=== PATIENT | male | born 1955 | race Caucasian/White ===

== ENCOUNTER 2016-10-05 09:16 | Outpatient (CLI) | payer OTHER | END 2016-10-05 09:17 | disposition home or self-care (01) | DX: I10 Essential (primary) hypertension (principal); E78.5 Hyperlipidemia, unspecified; R73.01 Impaired fasting glucose; D64.9 Anemia, unspecified ==

== ENCOUNTER 2017-01-25 22:57 | Emergency (ER) | payer OTHER ==
[2017-01-25 23:03] VITALS: BP 124/73
--- NOTE | 2017-01-25 23:11 | ED Physician Documentation ---
History of Present Illness - Stated complaint Stated Complaint: R KNEE PX - Chief complaint Chief Complaint: Ext Problem - History obtained from History obtained from: Patient - History of Present Illness Timing: How many days ago (6) Pain level now: 6 Improved by: rest Worsened by: movement, weight-bearing - Additonal information Additional information: c/o 6 days of gradual onset right knee pain and swelling, onset after gardening earlier in the day although this was not an unusual amount of activity for him. Denies h/o these symptoms. The pain and swelling have progressed to involve RLE distal to the knee as well. Taking ibuprofen which is no longer controlling the discomfort. Review of Systems Constitutional: denies: Fever Cardiac: denies: Chest pain / pressure Respiratory: denies: Dyspnea Musculoskeletal: reports: Extremity pain, Joint pain, Extremity swelling, Joint swelling, Pain with weight bearing Neurologic: denies: Focal weakness, Numbness PD PAST MEDICAL HISTORY - Past Medical History Cardiovascular: Hypertension Respiratory: None Neuro: Head injury Endocrine/Autoimmune: None GI: None : Benign prostate hypertrophy HEENT: None Psych: None Musculoskeletal: None Derm: None - Past Surgical History General: Colonoscopy Ortho: Other - Present Medications Home Medications: Ambulatory Orders Medication Instructions Recorded Confirmed Aspirin [Aspir 81] 81 mg PO DAILY 07/10/13 01/25/17 Losartan Potassium [Cozaar] 100 mg PO DAILY 07/10/13 01/25/17 Hydrochlorothiazide 1 tab ORAL DAILY 12/11/16 01/25/17 HYDROcod/ACETAM 5/325 [[place] 5/325] 1 - 2 ea PO Q6H PRN #15 tablet 01/26/17 - Allergies Allergies/Adverse Reactions: Allergies Allergy/AdvReac Type Severity Reaction Status Date / Time codeine AdvReac Unknown Rash Verified 01/25/17 23:01 lisinopril AdvReac Unknown Rash Verified 01/25/17 23:01 nifedipine AdvReac Unknown Rash Verified 01/25/17 23:01 simvastatin [From Zocor] AdvReac Unknown Rash Verified 01/25/17 23:01 sulfacetamide sodium * AdvReac Unknown Rash Verified 01/25/17 23:01 [From Sulfamide] - Social History Smoking Status: Former smoker PD ED PE NORMAL - Vitals Vital signs reviewed: Yes - General General: Alert and oriented X 3, No acute distress, Well developed/nourished - Derm Derm: Normal color, Warm and dry, No rash - Extremities Extremities: No tenderness to palpate - Neuro Neuro: No motor deficit, No sensory deficit PD ED PE EXPANDED - Extremities Extremities: Joint effusion, Pedal edema R. No: Tenderness, Limited ROM (FROM although pain is exacerbated with full flexion), Red warm joint Results - Vitals Vitals: Vital Signs - 24 hr 01/25/17 01/26/17 23:01 02:15 Temperature 36.0 C L Heart Rate 66 65 Respiratory 18 17 Rate Blood Pressure 124/73 O2 Saturation 99 99 Oxygen O2 Source Room air - Rads (name of study) RLE venous doppler US Radiology: Prelim report reviewed, See rad report PD MEDICAL DECISION MAKING - ED course Complexity details: reviewed results, re-evaluated patient, considered differential, d/w patient Departure - Departure Disposition: 01 Home, Self Care Clinical Impression: Pain of lower extremity Qualifiers: Laterality: right Qualified Code(s): M79.604 - Pain in right leg Condition: Good Instructions: ED Leg Swelling Unilateral Follow-Up: Day Stroud DO [Primary Care Provider] - (Call to arrange for next available appointment) Prescriptions: HYDROcod/ACETAM 5/325 [[place] 5/325] 1 - 2 ea PO Q6H PRN #15 tablet PRN Reason: Pain Discharge Date/Time: 01/26/17 02:17
--- NOTE | 2017-01-26 01:04 | Ultrasound Preliminary Report ---
Exam: US Duplex Ext Veins Right IMPRESSION: No evidence for deep venous thrombosis. [facility] SITE ID: [id number]
--- NOTE | 2017-01-26 01:07 | Ultrasound Report ---
EXAM: RIGHT LOWER EXTREMITY VENOUS ULTRASOUND EXAM DATE: 01/26/2017 12:42 AM. CLINICAL HISTORY: RLE pain, swelling. COMPARISON: None. TECHNIQUE: Real-time sonographic vascular imaging was performed by the pyrotechnics press tender through the lower extremity utilizing both color-flow and Doppler spectral analysis. Multiple inside account representative static jud ges were saved for review. FINDINGS: Common Femoral Vein (CFV): Normal. CFV-GSV Junction: Normal. Profunda Femoral Vein (PFV): Normal. Femoral Vein (FV) Prox: Normal. Femoral Vein (FV) Mid: Normal. Femoral Vein (FV) Dist: Normal. Popliteal Vein: Normal. Posterior Tibial Veins: Normal. Peroneal Veins: Normal. Contralateral Side CFV: Normal. Other: Right lateral knee fluid collection seen likely joint effusion. IMPRESSION: No evidence for deep venous thrombosis. [facility] Referring Provider Line: [phone] SITE ID: [id number]
[2017-01-26] MEDS ORDERED: HYDROcod/ACET 5/325 Prepack 6 PO STA (02:03)
[2017-01-26] MEDS ORDERED: HYDROcod/ACET 5/325 Prepack 6 PO ONE (02:17)
== END 2017-01-26 02:17 | disposition home or self-care (01) ==
LOC: ED 22:57
DX: M79.604 Pain in right leg (principal); I10 Essential (primary) hypertension; Z87.891 Personal history of nicotine dependence
CPT/HCPCS: 99283

== ENCOUNTER 2017-02-18 20:20 | Outpatient (CLI) | payer OTHER ==
--- NOTE | 2017-02-19 09:20 | XRAY Report ---
THREE-VIEW RIGHT KNEE: 02/18/2017 CLINICAL INDICATION: Traumatic arthropathy. FINDINGS: Frontal, lateral, sunrise views of the right knee demonstrate no evidence of fracture or d islocation. The joint spaces are preserved. No effusion is present. IMPRESSION: NORMAL RIGHT KNEE. JOB #: [id number] EXT JOB #:[id number]
== END 2017-02-18 20:21 | disposition home or self-care (01) ==
LOC: DI 20:20
PROVIDERS: ATTEND Internal Medicine
DX: M12.561 Traumatic arthropathy, right knee (principal)

== ENCOUNTER 2017-02-25 09:34 | Outpatient (CLI) | payer OTHER ==
[2017-02-25 18:07] LABS: ALBUMIN/GLOBULIN RATIO 0.8 (1.0-2.2); BILIRUBIN,TOTAL 0.4 mg/dL (0.2-1.0); CALCIUM 9.2 mg/dL (8.5-10.3); CREATININE 0.8 mg/dL (0.6-1.2); POTASSIUM 4.5 mmol/L (3.5-5.0); TOTAL PROTEIN 7.5 g/dL (6.7-8.2)
== END 2017-02-25 09:35 | disposition home or self-care (01) ==
LOC: LAB.F 09:34
PROVIDERS: ATTEND Physician Assistant Medical
DX: Z51.81 Encounter for therapeutic drug level monitoring (principal); Z79.899 Other long term (current) drug therapy
CPT/HCPCS: 36415; 80053

== ENCOUNTER 2017-03-02 14:48 | Outpatient (CLI) | payer OTHER ==
--- NOTE | 2017-03-02 22:03 | MRI Report ---
EXAM: RIGHT KNEE MRI WITHOUT CONTRAST EXAM DATE: 03/02/2017 04:42 p.m. CLINICAL HISTORY: Recent right knee injury. Right knee swelling. Difficulty extending the knee. COMPARISON: Right knee radiography from 02/18/2017. Right lower extremity duplex Doppler ultrasound f rom 01/26/2017. TECHNIQUE: Multiplanar, multisequence T1-weighted and fluid-sensitive sequences of the knee without c ontrast. Other: None. FINDINGS: Bones and articular cartilage: Mild marrow edema at the anterolateral and posterolateral aspects of t he tibial plateau. No acute fracture or bone lesions. 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 No subluxations. Medial Meniscus: The medial meniscus is intact. Lateral Meniscus: Oblique tear at the anterior horn. Cruciate Ligaments: The anterior and posterior cruciate ligaments are intact. Collateral Ligaments: The medial collateral and lateral collateral ligamentous structures are intact. Tendons: There is distal semimembranosus tendinosis. The quadriceps, patellar, and popliteus tendons are unremarkable. Musculature: Mild edema within the short head of the biceps femoris muscle and the posterior distal a spect of the vastus medialis muscle and posterior distal aspect of the vastus lateralis muscle. Mild edema within the popliteus muscle. Other: Small to moderate-sized joint effusion. Slight synovial thickening and irregularity suggestive of synovitis. There is a 3.6 x 1.7 x 2.2 cm collection of fluid within the semimembranosusgastrocne mius bursa (Ramirez's cyst). There is a larger, complex, bilobed cystic-appearing mass within the poste rior intermuscular fat/popliteal fossa. The superior component of this bilobed mass measures approxim ately 5.3 x 6.3 x 3.6 cm and is medial to the popliteal vessels at the level of the distal femur. It causes lateral displacement of the popliteal vessels. The smaller inferior component of this bilobed mass is posterior to the medial head gastrocnemius muscle at the level of the knee joint line. The ma ss is hyperintense on the T2-weighted images and hypointense on T1-weighted images. There are multipl e thin septations within the mass. No loose bodies. The medial and lateral retinacula are intact. I ncidentally, a medial synovial plica is present. There is subcutaneous edema at the knee. IMPRESSION: 1. Mild marrow edema at the anterolateral and posterolateral aspects of the lateral tibial plateau wh ich may represent a bone contusion. No acute fracture. 2. 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 3. Oblique tear at the anterior horn lateral meniscus. 4. Mild edema within the short head of the biceps femoris muscle and the posterior distal aspects of the vastus medialis and vastus lateralis muscles which may represent strain or inflammation. 5. Small to moderate-sized joint effusion. Synovial thickening and irregularity suggestive of synovit is. 6. Small Ramirez's cyst. 7. Large, complex, bilobed, cystic-appearing mass within the posterior intermuscular fat and poplitea l fossa at the posterior aspect of the knee. Differential would include a complex ganglion or hematom a. A cystic or mucinous neoplasm or an abscess is thought to be less likely, but cannot be entirely e xcluded. If the patient's symptoms persist or worsen, then a follow-up MRI without and with intraveno us contrast in 6-8 weeks is suggested to evaluate for interval change. 8. Diffuse subcutaneous edema at the knee. [facility] MUSCULOSKELETAL [facility]IOLOG[facility] SECTION Referring Provider Line: [phone] SITE ID: [id number]
== END 2017-03-02 14:49 | disposition home or self-care (01) ==
LOC: DI 14:48
PROVIDERS: ATTEND Physician Assistant Medical
DX: M94.261 Chondromalacia, right knee (principal); M25.461 Effusion, right knee; S83.281A Other tear of lateral meniscus, current injury, right knee, initial encounter; M71.21 Synovial cyst of popliteal space [Baker], right knee; R22.41 Localized swelling, mass and lump, right lower limb; R60.0 Localized edema

== ENCOUNTER 2017-04-01 07:04 | Day surgery (SDC) | payer OTHER ==
[~2017-04-01 07:04] MED LIST: ceFAZolin 2 GM/50 ML 2 GM/50 ML BAG IV ONE
[2017-04-01] MEDS ORDERED: LACTATED RINGERS 1,000 ML IV ONE ×2 (07:40→09:22)
[2017-04-01] MEDS ORDERED: BUPIVACAINE 0.25%-EPI 1:200000 PF 30 ML VIAL SUBQ ONE (08:28)
[2017-04-01] MEDS ORDERED: PROPOFOL 200 MG/20 ML VIAL IVP ONE (08:35)
[2017-04-01] MEDS ORDERED: fentaNYL 100 MCG/2 ML VIAL IVP ONE (08:35)
[2017-04-01] MEDS ORDERED: MIDAZOLAM 2 MG/2 ML VIAL IVP ONE (08:35)
[2017-04-01] MEDS ORDERED: LIDOCAINE-MPF 2% 5 ML VIAL IM ONE (08:35)
[2017-04-01] MEDS ORDERED: SUCCINYLCHOLINE 200 MG/10 ML VIAL IVP ONE (08:35)
[2017-04-01 12:55] VITALS: BP 119/65
--- NOTE | 2017-04-01 18:06 | OPERATIVE REPORT ---
Operative Report - General Procedure Date: 04/01/17 Planned Procedure: ATHROSCOPIC PARTIAL LATERAL MENISCECTOMY RIGHT KNEE Pre-Op Diagnosis: RIGHT KNEE LATERAL MENISCUS ANTERIOR HORN TEAR Procedure Performed: ATHROSCOPIC PARTIAL LATERAL MENISCECTOMY RIGHT KNEE Post Op Diagnosis: SAME - Procedure Note Primary Surgeon: KULWANT Secondary Surgeon: GERRI Anesthesia Provider: [facility] Anesthesia Technique: Spinal Estimated Blood Loss (mL): 2
--- NOTE | 2017-04-02 10:32 | OPERATIVE REPORT ---
DATE OF SURGERY: 04/01/2017 00:00:00 PREOPERATIVE DIAGNOSIS: Right knee anterior horn lateral meniscus tear. POSTOPERATIVE DIAGNOSIS: Right knee anterior horn lateral meniscus tear. PROCEDURE PERFORMED: Right knee arthroscopic partial lateral meniscectomy. SURGEON: Jose Zhang MD. AGENT CONTRACT CLERK: None. ANESTHESIA: Sal Cortes CRNA. ANESTHESIA TYPE: Spinal. ESTIMATED BLOOD LOSS: 2 mL. IMPLANTS: None. FINDINGS: In the patellofemoral joint, there was no chondromalacia. In the medial compartment, there was some waviness to the central edge of the medial meniscus, but no tear. There was no chondromalaci a. In the notch, the ACL was in its normal position, tightened with stress. In the lateral compartmen t, the posterior 2/3 of the lateral meniscus were intact with just some slight waviness to the centra l margin. The anterior horn had turned up the meniscal tissue and some small tears. It was not possib le to see getting into the cleft with a meniscal hook prior to resection. After resection, it was pos sible to prove that there was no remaining cleft in the meniscus. INDICATIONS FOR SURGERY: This man suffered several months of generally lateral and anterior right kne e pain. MRI scan showed a very clear tear in the anterior horn of the lateral meniscus. Otherwise, th e knee appeared normal on MRI. DESCRIPTION OF PROCEDURE: The patient was brought into the operating room and placed under adequate g eneral anesthesia. The right knee was then infiltrated with 60 mL of 0.25% Marcaine with epinephrine. The right lower extremity was prepped and sterilely draped in the usual fashion. No tourniquet was a pplied. A timeout was held to identify the patient, site, and procedure. The knee was entered with the usual inferolateral inferomedial portal for scope and instrumentation r espectively. A large bore needle was placed in the superior patellar pouch for infiltration for pdamini l saline irrigation. Thorough exam of the knee was done and it is reported above. Attention was directed to the lateral compartment. First, some small biters were introduced but did n ot very well resect the material. Following this, the cautery resector was introduced, and the modera te synovitis surrounding the area of tear was removed. Following this, the damaged portion of the lat eral meniscus was resected back to a stable remnant. The knee was irrigated until clear with about 500 mL of normal saline. The portals were closed with i nterrupted 4-0 nylon [id number] sutures. Sterile bandage was applied. The patient was then taken to the recovery room in good condition having tolerated the procedure well, with her spinal still in effect. JOB #: [id number] [id number] JOB #:[id number]
== END 2017-04-01 07:05 | disposition home or self-care (01) ==
LOC: SDS 07:04
PROVIDERS: ATTEND Orthopaedic Surgery
PROC: 0SBC4ZZ Excision of Right Knee Joint, Percutaneous Endoscopic Approach (ICD-10-PCS; principal; 2017-04-01 08:00)
DX: S83.281A Other tear of lateral meniscus, current injury, right knee, initial encounter (principal)
CPT/HCPCS: 29881; J0690; J7120

== ENCOUNTER 2017-08-30 10:03 | Outpatient (CLI) | payer OTHER ==
--- NOTE | 2017-08-30 12:04 | MRI Report ---
EXAM: RIGHT KNEE MRI WITHOUT CONTRAST EXAM DATE: 08/30/2017 10:52 AM. CLINICAL HISTORY: Worsening lateral right knee pain. Previous knee surgery in March 2017. Recent f all 3 weeks ago. COMPARISON: Right knee MRI from 03/02/2017. TECHNIQUE: Multiplanar, multisequence T1-weighted and fluid-sensitive sequences of the knee without c ontrast. Other: None. FINDINGS: Bones and Articular Cartilage: There is a 4 x 2 mm full-thickness articular cartilage fissure at the lateral tibial plateau which is new since the previous study. Subchondral marrow edema at the central aspect of the lateral tibial plateau which is also new since the previous study. Small partial-thick ness articular cartilage fissure at the lateral patellar facet which is unchanged. No subluxation. No acute fracture or bone lesions. Medial Meniscus: Minimal blunting at the free edge of the medial meniscal body which is unchanged. No discrete tear. Lateral Meniscus: There is blunting at the free edge and inner third of the lateral meniscus which ma y be due to degeneration and/or previous partial meniscectomy. No definite recurrent tear. Cruciate Ligaments: The anterior and posterior cruciate ligaments are intact. Collateral Ligaments: The medial collateral and lateral collateral ligamentous structures are intact. Tendons: The quadriceps, patellar, semimembranosus, and popliteus tendons are unremarkable. Musculature: No edema or fatty atrophy. Other: Very small joint effusion. Small popliteal cyst. No loose bodies. The medial and lateral reti nacula are intact. The subcutaneous tissues and fat pads are unremarkable. IMPRESSION: 1. New full-thickness articular cartilage fissure and subchondral marrow edema at the central aspect of the lateral tibial plateau. 2. Persistent small partial-thickness articular cartilage fissure at the lateral patellar facet. 3. Minimal blunting at the free edge of the medial meniscal body which is unchanged, and may represen t degenerative fraying. No discrete tear. 4. Blunting at the free edge and inner third of the lateral meniscus which may be due to degeneration and/or previous partial meniscectomy. No definite recurrent tear. 5. Very small joint effusion and small popliteal cyst. [facility]CULOSKELET[facility] SECTION Referring Provider Line: [phone] SITE ID: [id number]
== END 2017-08-30 10:04 | disposition home or self-care (01) ==
LOC: DI 10:03
PROVIDERS: ATTEND Orthopaedic Surgery
DX: M23.91 Unspecified internal derangement of right knee (principal); M25.461 Effusion, right knee; M71.21 Synovial cyst of popliteal space [Baker], right knee

== ENCOUNTER 2017-09-11 09:05 | Outpatient (CLI) | payer OTHER ==
[2017-09-11 17:37] LABS: BASOPHILS % (AUTO) 0.7 %; EOSINOPHILS # (AUTO) 0.1 10^3/uL (0.0-0.7); EOSINOPHILS % (AUTO) 2.1 %; HGB - HEMOGLOBIN 13.7 g/dL (14.0-18.0); LYMPHOCYTES # (AUTO) 1.1 10^3/uL (1.5-3.5); LYMPHOCYTES % (AUTO) 24.6 %; MEAN CORPUSCULAR HEMOGLOBIN 29.9 pg (27.0-31.0); MEAN CORPUSCULAR HGB CONC 32.6 g/dL (32.0-36.0); MEAN CORPUSCULAR VOLUME 91.7 fL (80.0-94.0); MEAN PLATELET VOLUME 8.6 fL (7.4-11.4); MONOCYTES # (AUTO) 0.4 10^3/uL (0.0-1.0); MONOCYTES % (AUTO) 9.7 %; NEUTROPHILS # (AUTO) 2.7 10^3/uL (1.5-6.6); NEUTROPHILS % (AUTO) 62.9 %; PLT - PLATELET COUNT 221 10^3/uL (130-450); RED CELL DISTRIBUTION WIDTH 14.6 % (12.0-15.0); WHITE BLOOD COUNT 4.3 x10^3/uL (4.8-10.8)
[2017-09-11 17:43] LABS: HB2 TOTAL 15.4 g/dL; HEMOGLOBIN A1C 0.67 g/dL; HEMOGLOBIN A1C % 6.1 % (4.6-6.2)
[2017-09-11 17:48] LABS: ALBUMIN 4.4 g/dL (3.2-5.5); ALBUMIN/GLOBULIN RATIO 1.6 (1.0-2.2); ALKALINE PHOSPHATASE 26 IU/L (42-121); ALT ALANINE AMINOTRANSFERASE 19 IU/L (10-60); AST ASPARTATE AMINOTRANSFERASE 18 IU/L (10-42); BILIRUBIN,TOTAL 0.8 mg/dL (0.2-1.0); BUN - BLOOD UREA NITROGEN 21 mg/dL (6-20); CARBON DIOXIDE - CO2 24 mmol/L (21-32); CHLORIDE 101 mmol/L (101-111); CHOL/HDL RATIO 5.6 (<5.0); CHOLESTEROL 197 mg/dL; CREATININE 0.8 mg/dL (0.6-1.2); GFR - MDRD 98 (>89); GLUCOSE 97 mg/dL (70-100); HDL CHOLESTEROL 35 mg/dL; LDL CHOLESTEROL,CALCULATED 150 mg/dL; LDL/HDL RATIO 4.3 (<3.6); SODIUM 134 mmol/L (135-145); TOTAL PROTEIN 7.1 g/dL (6.7-8.2); VLDL CHOLESTEROL 12 mg/dL
== END 2017-09-11 09:06 | disposition home or self-care (01) ==
LOC: LAB.F 09:05
PROVIDERS: ATTEND Nurse Practitioner Family
DX: I10 Essential (primary) hypertension (principal); R73.01 Impaired fasting glucose; Z13.220 Encounter for screening for lipoid disorders; Z12.5 Encounter for screening for malignant neoplasm of prostate
CPT/HCPCS: 36415; 80053; 80061; 83036; 83721; 84153; 84443; 85025

== ENCOUNTER 2018-02-11 09:35 | Outpatient (CLI) | payer OTHER ==
[2018-02-11 18:19] LABS: ALBUMIN/GLOBULIN RATIO 1.4 (1.0-2.2); ALKALINE PHOSPHATASE 33 IU/L (42-121); ALT ALANINE AMINOTRANSFERASE 17 IU/L (10-60); AST ASPARTATE AMINOTRANSFERASE 19 IU/L (10-42); BILIRUBIN,TOTAL 0.7 mg/dL (0.2-1.0); BUN - BLOOD UREA NITROGEN 27 mg/dL (6-20); CALCIUM 8.7 mg/dL (8.5-10.3); CARBON DIOXIDE - CO2 26 mmol/L (21-32); CHLORIDE 105 mmol/L (101-111); CHOL/HDL RATIO 3.9 (<5.0); CHOLESTEROL 170 mg/dL; CREATININE 0.7 mg/dL (0.6-1.2); GFR - MDRD 114 (>89); GLUCOSE 104 mg/dL (70-100); HDL CHOLESTEROL 44 mg/dL; LDL CHOLESTEROL,CALCULATED 112 mg/dL; LDL/HDL RATIO 2.5 (<3.6); SODIUM 138 mmol/L (135-145); TOTAL PROTEIN 6.8 g/dL (6.7-8.2); VLDL CHOLESTEROL 14 mg/dL
[2018-02-11 18:48] LABS: HB2 TOTAL 13.9 g/dL; HEMOGLOBIN A1C 0.64 g/dL; HEMOGLOBIN A1C % 6.4 % (4.6-6.2)
== END 2018-02-11 09:36 | disposition home or self-care (01) ==
LOC: LAB.F 09:35
PROVIDERS: ATTEND Nurse Practitioner Family
DX: E78.5 Hyperlipidemia, unspecified (principal); E88.81 Metabolic syndrome and other insulin resistance; I10 Essential (primary) hypertension
CPT/HCPCS: 36415; 80053; 80061; 83036; 83721

== ENCOUNTER 2018-08-04 10:20 | Emergency (ER) | payer OTHER ==
--- NOTE | 2018-08-04 12:41 | XRAY Report ---
Reason: cough prolonged Procedure Date: 08/04/2018 Accession Number: [id number] / [id number] Procedure: XR - Chest 2 View X-Ray CPT Code: 13510 FULL RESULT: EXAM: CHEST RADIOGRAPHY EXAM DATE: 08/04/2018 12:14 PM. CLINICAL HISTORY: Cough prolonged. COMPARISON: None. TECHNIQUE: 2 views. FINDINGS: Lungs/Pleura: Peribronchial thickening. Linear atelectasis or scarring left lung base. No focal opacities evident. No pleural effusion. No pneumothorax. Normal volumes. Mediastinum: Heart and mediastinal contours are unremarkable. Other: None. IMPRESSION: Peribronchial thickening may represent bronchitis [facility]
[2018-08-04 13:57] VITALS: BP 120/77
--- NOTE | 2018-08-04 14:35 | ED Physician Documentation ---
History of Present Illness - Stated complaint Stated Complaint: COUGH/EAR PAIN - Chief complaint Chief Complaint: Heent - History obtained from History obtained from: Patient - History of Present Illness Pain level max: 9 - Additonal information Additional information: Patient is a 63-year-old male with approximately 1 day history of productive cough without shortness of breath, viral URI symptoms including nasal congestion without rhinorrhea, as well as right ear pain with drainage. Patient denies left ear pain, sore throat, sinus pressure, chest pain, or abdominal complaints, as well as fever. Patient reports that he has had bloody drainage from the right ear which has also experienced popping sensations and decreased hearing. Patient reports that the symptoms worsened when he was bending over to take something out of the bottom shelf of the refrigerator and when he tried to pop his ears by holding his nose and breathing. Patient denies any particular worsening or improving Factors to his symptoms. Review of Systems Constitutional: denies: Fever Eyes: denies: Reviewed and negative Ears: reports: Loss of hearing, Ear pain, Drainage/discharge Nose: reports: Rhinorrhea / runny nose, Congestion Respiratory: reports: Cough. denies: Dyspnea PD PAST MEDICAL HISTORY - Past Medical History Cardiovascular: Hypertension Respiratory: None Endocrine/Autoimmune: None GI: GERD : Benign prostate hypertrophy HEENT: Chronic vision loss Psych: Anxiety Musculoskeletal: None Derm: None - Past Surgical History Past Surgical History: Yes General: Colonoscopy Ortho: Other - Present Medications Home Medications: Ambulatory Orders Medication Instructions Recorded Confirmed Losartan Potassium [Cozaar] 100 mg PO DAILY 07/10/13 04/01/17 RX: Hydrochlorothiazide 1 tab ORAL DAILY 12/11/16 04/01/17 Amox/Clav 875/125 [Augmentin] 1 each PO Q12H #14 tablet 08/04/18 Benzonatate [Tessalon Perle] 100 - 200 mg PO TID PRN #30 capsule 08/04/18 - Allergies Allergies/Adverse Reactions: Allergies Allergy/AdvReac Type Severity Reaction Status Date / Time Sulfa (Sulfonamide Allergy Unknown Verified 08/04/18 10:30 Antibiotics) codeine AdvReac Unknown Emesis Verified 08/04/18 10:30 lisinopril AdvReac Unknown Rash Verified 08/04/18 10:30 nifedipine AdvReac Unknown Rash Verified 08/04/18 10:30 simvastatin [From Zocor] AdvReac Unknown Rash Verified 08/04/18 10:30 melatonin AdvReac Unknown Verified 08/04/18 10:30 trazodone AdvReac Unknown Verified 08/04/18 10:30 - Social History Does the pt smoke?: No Smoking Status: Former smoker Does the pt drink ETOH?: No Does the pt have substance abuse?: No - Immunizations Immunizations are current?: Yes - POLST Patient has POLST: No PD ED PE NORMAL - General General: Alert and oriented X 3, No acute distress, Well developed/nourished - HEENT HEENT: Atraumatic, Moist mucous membranes, Pharynx benign, Other (Left external ear and tympanic membrane unremarkable. Right external ear unremarkable, but purulent and bloody drainage present in right auditory canal making visualization of TM unremarkable, but appears slightly dull and bulging without effusion, significant erythema, or obvious rupture.) - Cardiac Cardiac: RRR, No murmur - Respiratory Respiratory: Other (Dry cough present. Poor air movement throughout, but no crackles or wheezes.) - Abdomen Abdomen: Normal bowel sounds, Non tender, Non distended - Derm Derm: Normal color, Warm and dry, No rash - Extremities Extremities: No deformity, No tenderness to palpate - Neuro Neuro: Alert and oriented X 3 - Psych Psych: Normal mood, Normal affect Results - Vitals Vitals: Vital Signs - 24 hr 08/04/18 08/04/18 08/04/18 10:26 13:54 15:38 Temperature 36.6 C 36.8 C Heart Rate 73 75 80 Respiratory 16 20 18 Rate Blood Pressure 134/80 H 120/77 O2 Saturation 95 97 Oxygen O2 Source Room air PD MEDICAL DECISION MAKING - ED course Complexity details: reviewed results, considered differential, d/w patient, d/w family ED course: Feel the patient is likely experiencing bronchitis and other viral symptoms. Discussed possible influenza, but feel this is less likely given constellation of symptoms, particularly with lack of fever. Have higher suspicion for tympanic membrane rupture, otitis externa, otitis media, sinusitis given symptomatology and findings. Have lower suspicion for pneumonia, but given cough chest x-ray obtained, which returned unremarkable.Do not feel patient is experiencing cardiac etiologies, abdominal etiologies, or other systemic signs of illness. Discussed multiple etiologies including bronchitis and use of prescription medication for cough control, as well as supportive cares. Also discussed multiple concerns regarding right ear including possible tympanic membrane rupture given bloody discharge, as well as possible otitis externa given purulent discharge. However, given concern for possible tympanic membrane rupture, did not feel appropriate to prescribe otic drops. Given patient's other sinus complaints, feel most appropriate to address this with oral antibiotic and recommended that patient follow-up with both his primary care ph ysician and ENT for further evaluation. Also discussed with her return precautions and supportive cares. Patient voiced understanding and is comfortable with discharge plan, but did request pain medication prior to discharge, which was provided. Departure - Departure Disposition: Home, Self Care Clinical Impression: Tympanic membrane rupture, Bronchitis Condition: Good Instructions: Bronchitis Acute Dc, ED Rupture Eardrum Infec Follow-Up: Hilary Sofia PA-C [Primary Care Provider] - [facility] [Provider Group] Prescriptions: Amox/Clav 875/125 [Augmentin] 1 each PO Q12H #14 tablet Benzonatate [Tessalon Perle] 100 - 200 mg PO TID PRN #30 capsule PRN Reason: Cough Comments: Please continue home medications as previously instructed. Please do not place anything into your ear, including water, eardrops, or other medications. Recommend covering the ear with cotton balls while showering. Please take cough medication and antibiotics as prescribed to address other issues. Please follow-up with your primary care physician, as well as ENT in next several days. Recommend [facility]. Return to ED sooner if expands worsening symptoms or other concerns. Discharge Date/Time: 08/04/18 15:39
[2018-08-04] MEDS ORDERED: HYDROcod/ACETAM 5/325 MG TABLET PO STA (15:24)
== END 2018-08-04 15:39 | disposition home or self-care (01) ==
LOC: ED 10:20
DX: H72.91 Unspecified perforation of tympanic membrane, right ear (principal); J40 Bronchitis, not specified as acute or chronic
CPT/HCPCS: 71046; 99283; A9270

== ENCOUNTER 2018-09-16 18:45 | Emergency (ER) | payer OTHER ==
--- NOTE | 2018-09-16 20:52 | ED Physician Documentation ---
History of Present Illness - Stated complaint Stated Complaint: MALE - Chief complaint Chief Complaint: General - History obtained from History obtained from: Patient - Additonal information Additional information: Patient is a 63-year-old male with a complicated past urological history presenting with acute on chronic skin changes and discomfort to his genital area. 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 Patient has had multiple issues with his groin including pigmentation deficiency which has led to significant skin breakdown in the groin area as well as his penis. Patient has required grafting to the penis in the past. Patient's last neurological visit was in [place]. He denies any specific plan as to treat his chronic issues except for barrier creams such as Desitin. Patient also recently experienced a UTI and was treated with antibiotics and finished these medications. However, today he is experiencing mild suprapubic discomfort and dysuria, although no hematuria.Patient has not had sexual intercourse for approximately 1 year and denies concerns for STIs at this time. Patient also denies other testicular complaints. No other improving or worsening factors noted. Review of Systems GI: reports: Abdominal Pain : reports: Dysuria PD PAST MEDICAL HISTORY - Past Medical History Past Medical History: Yes Cardiovascular: Hypertension Respiratory: None Endocrine/Autoimmune: None GI: GERD : Benign prostate hypertrophy, Other (hypospadia, skin graft to penis) HEENT: Chronic vision loss Psych: Anxiety Musculoskeletal: None Derm: None - Past Surgical History Past Surgical History: Yes General: Colonoscopy Ortho: Other Derm: Skin grafts - Present Medications Home Medications: Ambulatory Orders Medication Instructions Recorded Confirmed Losartan Potassium [Cozaar] 100 mg PO DAILY 07/10/13 04/01/17 RX: Hydrochlorothiazide 1 tab ORAL DAILY 12/11/16 04/01/17 RX: Metoprolol Tartrate 50 mg PO 09/16/18 09/16/18 - Allergies Allergies/Adverse Reactions: Allergies Allergy/AdvReac Type Severity Reaction Status Date / Time Sulfa (Sulfonamide Allergy Unknown Verified 09/16/18 18:50 Antibiotics) codeine AdvReac Unknown Emesis Verified 09/16/18 18:50 lisinopril AdvReac Unknown Rash Verified 08/04/18 10:30 nifedipine AdvReac Unknown Rash Verified 09/16/18 18:50 simvastatin [From Zocor] AdvReac Unknown Rash Verified 09/16/18 18:50 melatonin AdvReac Unknown Verified 09/16/18 18:50 trazodone AdvReac Unknown Verified 09/16/18 18:50 - Social History Does the pt smoke?: No Smoking Status: Never smoker Does the pt drink ETOH?: No Does the pt have substance abuse?: No - Immunizations Immunizations are current?: Yes - POLST Patient has POLST: No PD ED PE NORMAL - General General: Alert and oriented X 3, No acute distress, Well developed/nourished - Abdomen Abdomen: Normal bowel sounds, Soft, Non tender, Non distended - Male Male : 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 No changes to scrotum or testicles. No penile drainage, lesios or masses noted. Circumsized with phimosis or paraphimosis.) Results - Vitals Vitals: Vital Signs - 24 hr 09/16/18 09/16/18 09/16/18 18:47 18:49 21:14 Temperature 36.3 C L Heart Rate 60 60 58 L Respiratory 20 20 18 Rate Blood Pressure 151/79 H 151/79 H 141/90 H O2 Saturation 95 95 96 09/16/18 22:27 Temperature Heart Rate 60 Respiratory 18 Rate Blood Pressure 138/88 H O2 Saturation 96 Oxygen O2 Source Room air - Labs Labs: Laboratory Tests 09/16/18 21:16 Urine Color YELLOW Urine Clarity CLEAR Urine pH 5.5 Ur Specific [place] 1.025 Urine Protein NEGATIVE Urine Glucose (UA) NEGATIVE Urine Ketones 15 H Urine Occult Blood NEGATIVE Urine Nitrite NEGATIVE Urine Bilirubin NEGATIVE Urine Urobilinogen 0.2 (NORMAL) Ur Leukocyte Esterase NEGATIVE Ur Microscopic Review NOT INDICATED Urine Culture Comments NOT INDICATED PD MEDICAL DECISION MAKING - ED course Complexity details: reviewed results, re-evaluated patient, considered differential, d/w patient, d/w family ED course: Patient has extremely complicated past urological history and feel that his complaints today are related to these chronic issues. Do not find evidence of yeast infection, abscess, gangrene or necrotizing fasciitis, Karan's gangrene or had concerns for other perirectal abscess, STI or other systemic illness.Urine sample which not reveal evidence of infection and do not believe he is likely experiencing a UTI. Patient denied testicular complaints and have low suspicion for epididymitis, orchitis, varicocele, hydrocele, or torsion. Provided Toradol in ED. 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 Otherwise describes supportive cares, return precautions, need for urological follow-up. Patient voiced understanding and is comfortable with this discharge plan. Departure - Departure Disposition: 01 Home, Self Care Clinical Impression: Groin discomfort Condition: Good Follow-Up: Hilary Sofia PA-C [Primary Care Provider] - Within 3 Days Comments: Recommend continuing good hygiene to the groin area, as well as barrier creams or baby powder to help reduce discomfort, friction, and wetness. May also try ibuprofen/Tylenol as needed. Please follow-up with your primary care physician in the next 2 to 3 days. More importantly, you need to follow-up with urology, likely in [place], to have long-term resolution to these underlying chronic issues. Return to ED sooner if expands worsening symptoms or other concerns. Discharge Date/Time: 09/16/18 22:27
[2018-09-16] MEDS ORDERED: KETOROLAC 60 MG/2 ML VIAL IM STA (21:11)
[2018-09-16 21:35] LABS: BILIRUBIN,URINE NEGATIVE (NEGATIVE); GLUCOSE, URINE (UA) NEGATIVE (NEGATIVE); KETONES,URINE (UA) 15 mg/dL (NEGATIVE); LEUKOCYTE ESTERASE, URINE NEGATIVE (NEGATIVE); NITRITE,URINE NEGATIVE (NEGATIVE); OCCULT BLOOD,URINE NEGATIVE (NEGATIVE); PH,URINE 5.5 PH (5.0-7.5); PROTEIN,URINE NEGATIVE (NEGATIVE); UROBILINOGEN,URINE 0.2 (NORMAL) E.U./dL (NORMAL)
[2018-09-16 21:36] LABS: CLARITY,URINE CLEAR (CLEAR)
[2018-09-16 22:28] VITALS: BP 138/88
== END 2018-09-16 22:27 | disposition home or self-care (01) ==
LOC: ED 18:45
DX: R10.30 Lower abdominal pain, unspecified (principal); R23.8 Other skin changes; N40.0 Benign prostatic hyperplasia without lower urinary tract symptoms; I10 Essential (primary) hypertension
CPT/HCPCS: 81001; 81003; 87086; 96372; 99283

== ENCOUNTER 2018-09-24 08:35 | Outpatient (CLI) | payer OTHER ==
[2018-09-24 11:30] LABS: BASOPHILS % (AUTO) 0.7 %; EOSINOPHILS # (AUTO) 0.1 10^3/uL (0.0-0.7); EOSINOPHILS % (AUTO) 2.1 %; HGB - HEMOGLOBIN 13.8 g/dL (14.0-18.0); LYMPHOCYTES # (AUTO) 0.7 10^3/uL (1.5-3.5); MEAN CORPUSCULAR HGB CONC 32.3 g/dL (32.0-36.0); MEAN CORPUSCULAR VOLUME 92.8 fL (80.0-94.0); MEAN PLATELET VOLUME 8.9 fL (7.4-11.4); MONOCYTES # (AUTO) 0.4 10^3/uL (0.0-1.0); MONOCYTES % (AUTO) 9.7 %; NEUTROPHILS # (AUTO) 2.9 10^3/uL (1.5-6.6); NEUTROPHILS % (AUTO) 71.5 %; PLT - PLATELET COUNT 240 10^3/uL (130-450); WHITE BLOOD COUNT 4.1 x10^3/uL (4.8-10.8)
[2018-09-24 11:50] LABS: ALBUMIN/GLOBULIN RATIO 1.4 (1.0-2.2); ALKALINE PHOSPHATASE 31 IU/L (42-121); ALT ALANINE AMINOTRANSFERASE 19 IU/L (10-60); AST ASPARTATE AMINOTRANSFERASE 17 IU/L (10-42); BILIRUBIN,TOTAL 0.8 mg/dL (0.2-1.0); BUN - BLOOD UREA NITROGEN 25 mg/dL (6-20); CALCIUM 8.8 mg/dL (8.5-10.3); CARBON DIOXIDE - CO2 25 mmol/L (21-32); CHLORIDE 102 mmol/L (101-111); CHOL/HDL RATIO 4.7 (<5.0); CHOLESTEROL 163 mg/dL; CREATININE 0.8 mg/dL (0.6-1.2); GFR - MDRD 98 (>89); GLUCOSE 104 mg/dL (70-100); HDL CHOLESTEROL 35 mg/dL; LDL CHOLESTEROL,CALCULATED 115 mg/dL; LDL/HDL RATIO 3.3 (<3.6); SODIUM 138 mmol/L (135-145); TOTAL PROTEIN 6.9 g/dL (6.7-8.2); VLDL CHOLESTEROL 13 mg/dL
[2018-09-24 11:52] LABS: HB2 TOTAL 14.6 g/dL; HEMOGLOBIN A1C 0.6 g/dL; HEMOGLOBIN A1C % 5.9 % (4.6-6.2)
== END 2018-09-24 08:36 | disposition home or self-care (01) ==
LOC: LAB.F 08:35
PROVIDERS: ATTEND Physician Assistant Medical
DX: I10 Essential (primary) hypertension (principal); E78.5 Hyperlipidemia, unspecified; R73.02 Impaired glucose tolerance (oral)
CPT/HCPCS: 36415; 80053; 80061; 83036; 83721; 85025

== ENCOUNTER 2018-10-01 17:22 | Outpatient (CLI) | payer OTHER ==
--- NOTE | 2018-10-02 10:42 | Ultrasound Report ---
Reason: TESTICULAR MASS Procedure Date: 10/01/2018 Accession Number: [id number] / [id number] Procedure: US - Testicle CPT Code: FULL RESULT: EXAM: SCROTAL ULTRASOUND EXAM DATE: 10/01/2018 07:00 PM. CLINICAL HISTORY: Bilateral scrotal swelling right greater than left. COMPARISON: ABDOMEN LIMITED 08/05/2015 11:24 AM. TECHNIQUE: Real-time scanning was performed with static images obtained. Color-flow images were utilized. FINDINGS: Right: Testis: 3.7 x 1.7 x 2.2 cm. Normal size and echotexture. No mass, calcification, or abnormal blood flow. Epididymis: 0.8 x 0.3 x 0.8 cm. Normal size and echotexture. No mass or abnormal blood flow. Hydrocele: Small to moderate Varicocele: None. Left: Testis: 2.9 x 1.7 x 2.2 cm. Normal size and echotexture. No mass, calcification, or abnormal blood flow. Epididymis: 0.9 x 0.5 x 0.7 cm. Normal size and echotexture. No mass or abnormal blood flow. Hydrocele: None. Varicocele: None. Inguinal regions: Symmetric bilateral columns of adipose tissue filled the inguinal canals bilaterally with motion during Valsalva consistent with large bilateral fat-containing inguinal hernias. IMPRESSION: 1. Large bilateral fat containing-inguinal hernias. 2. Small to moderate right hydrocele. RADIA
== END 2018-10-01 17:23 | disposition home or self-care (01) ==
LOC: DI 17:22
PROVIDERS: ATTEND Physician Assistant Medical
DX: K40.20 Bilateral inguinal hernia, without obstruction or gangrene, not specified as recurrent (principal); N43.3 Hydrocele, unspecified
CPT/HCPCS: 76870

== ENCOUNTER 2018-10-10 10:36 | Outpatient (CLI) | payer OTHER | END 2018-10-10 10:37 | disposition home or self-care (01) | LOC: LAB.F 10:36 | PROVIDERS: ATTEND Physician Assistant Medical | DX: Z12.5 Encounter for screening for malignant neoplasm of prostate (principal) | CPT/HCPCS: 36415; 84153 ==

== ENCOUNTER 2018-11-17 11:05 | Emergency (ER) | payer OTHER ==
[2018-11-17 11:15] VITALS: BP 111/80
[2018-11-17 12:36] LABS: BILIRUBIN,URINE NEGATIVE (NEGATIVE); GLUCOSE, URINE (UA) NEGATIVE (NEGATIVE); KETONES,URINE (UA) NEGATIVE (NEGATIVE); LEUKOCYTE ESTERASE, URINE TRACE (NEGATIVE); NITRITE,URINE POSITIVE (NEGATIVE); OCCULT BLOOD,URINE NEGATIVE (NEGATIVE); PROTEIN,URINE NEGATIVE (NEGATIVE); UROBILINOGEN,URINE 0.2 (NORMAL) E.U./dL (NORMAL)
[2018-11-17 12:37] LABS: CLARITY,URINE HAZY (CLEAR)
[2018-11-17 12:43] LABS: BACTERIA,URINE Many /HPF (None Seen); RBC,URINE None Seen /HPF (0-5); SQUAMOUS EPITHELIAL CELL,UR NONE SEEN (<= Few)
--- NOTE | 2018-11-17 12:45 | ED Physician Documentation ---
PD HPI MALE - Stated complaint Stated Complaint: MALE - Chief complaint Chief Complaint: UTI - History obtained from History obtained from: Patient - History of Present Illness Timing - onset: How many weeks ago (1) Timing - duration: Weeks (1) Timing - details: Gradual onset Pain level max: 0 Pain level now: 0 Associated symptoms: Dysuria Similar symptoms before: Diagnosis (UTI) - Additional information Additional information: Patient recently diagnosed with a UTI from the clinic. He started to take the ciprofloxacin but made him feel dizzy, requesting antibiotic change. Called the clinic who refused to change his antibiotic and told him to come here to have his antibiotics changed. Review of Systems Constitutional: denies: Fever, Chills Throat: denies: Sore throat Respiratory: denies: Dyspnea, Cough GI: denies: Abdominal Pain, Nausea, Vomiting, Diarrhea : reports: Dysuria Skin: denies: Rash Musculoskeletal: denies: Neck pain, Back pain Neurologic: denies: Headache PD PAST MEDICAL HISTORY - Past Medical History Past Medical History: Yes Cardiovascular: Hypertension Respiratory: None Neuro: None Endocrine/Autoimmune: None GI: GERD : Benign prostate hypertrophy, Other HEENT: Chronic vision loss Psych: Anxiety Musculoskeletal: None Derm: None - Past Surgical History Past Surgical History: Yes General: Colonoscopy Ortho: Other Derm: Skin grafts - Present Medications Home Medications: Ambulatory Orders Medication Instructions Recorded Confirmed Losartan Potassium [Cozaar] 100 mg PO DAILY 07/10/13 04/01/17 Hydrochlorothiazide 1 tab ORAL DAILY 12/11/16 04/01/17 Metoprolol Tartrate 50 mg PO 09/16/18 09/16/18 Cephalexin [Keflex] 500 mg PO Q6H #28 capsule 11/17/18 - Allergies Allergies/Adverse Reactions: Allergies Allergy/AdvReac Type Severity Reaction Status Date / Time Sulfa (Sulfonamide Allergy Unknown Verified 11/17/18 11:15 Antibiotics) codeine AdvReac Unknown Emesis Verified 11/17/18 11:15 lisinopril AdvReac Unknown Rash Verified 11/17/18 11:15 nifedipine AdvReac Unknown Rash Verified 11/17/18 11:15 simvastatin [From Zocor] AdvReac Unknown Rash Verified 11/17/18 11:15 melatonin AdvReac Unknown Verified 11/17/18 11:15 trazodone AdvReac Unknown Verified 11/17/18 11:15 - Social History Does the pt smoke?: No Smoking Status: Never smoker Does the pt drink ETOH?: No Does the pt have substance abuse?: No - Immunizations Immunizations are current?: Yes - POLST Patient has POLST: No PD ED PE NORMAL - Vitals Vital signs reviewed: Yes - General General: Alert and oriented X 3, No acute distress, Well developed/nourished - HEENT HEENT: PERRL, Moist mucous membranes - Neck Neck: Supple, no meningeal sign - Cardiac Cardiac: RRR, Strong equal pulses - Respiratory Respiratory: No respiratory distress, Clear bilaterally - Abdomen Abdomen: Soft, Non tender, Non distended - Back Back: No CVA TTP, No spinal TTP - Derm Derm: Warm and dry - Neuro Neuro: Alert and oriented X 3 - Psych Psych: Normal mood, Normal affect Results - Vitals Vitals: Vital Signs - 24 hr 11/17/18 11:11 Temperature 36.8 C Heart Rate 59 L Respiratory 20 Rate Blood Pressure 111/80 O2 Saturation 99 Oxygen O2 Source Room air - Labs Labs: Laboratory Tests 11/17/18 12:00 Urine Color YELLOW Urine Clarity HAZY Urine pH 6.0 Ur Specific [place] 1.020 Urine Protein NEGATIVE Urine Glucose (UA) NEGATIVE Urine Ketones NEGATIVE Urine Occult Blood NEGATIVE Urine Nitrite POSITIVE H Urine Bilirubin NEGATIVE Urine Urobilinogen 0.2 (NORMAL) Ur Leukocyte Esterase TRACE H Urine RBC None Seen Urine WBC >25 H Ur Squamous Epith Cells NONE SEEN Urine Bacteria Many H Ur Microscopic Review INDICATED Urine Culture Comments INDICATED PD MEDICAL DECISION MAKING - ED course Complexity details: reviewed results, considered differential, d/w patient ED course: Patient with a UTI. Will change to Keflex. We will follow-up with his doctor for further care. No evidence of prostatitis. No pain with bowel movements. No pain with ejaculation. No evidence of pyelonephritis. No fevers. Patient counseled regarding signs and symptoms for which I believe and urgent re- evaluation would be necessary. Patient with good understanding of and agreement to plan and is comfortable going home at this time This document was made in part using voice recognition software. While efforts are made to proofread this document, sound alike and grammatical errors may occur. Departure - Departure Disposition: 01 Home, Self Care Clinical Impression: UTI (urinary tract infection) Qualifiers: Urinary tract infection type: acute cystitis Hematuria presence: without hematuria Qualified Code(s): N30.00 - Acute cystitis without hematuria Condition: Good Instructions: ED UTI Cystitis Male Follow-Up: Hilary Sofia PA-C [Primary Care Provider] - Within 1 week Prescriptions: Cephalexin [Keflex] 500 mg PO Q6H #28 capsule Comments: Take all antibiotics until gone. Return if you worsen. Follow-up with your doctor for further care.
== END 2018-11-17 12:58 | disposition home or self-care (01) ==
LOC: ED 11:05
DX: N30.00 Acute cystitis without hematuria (principal); I10 Essential (primary) hypertension
CPT/HCPCS: 81001; 81003; 87077; 87086; 87181; 99283

== ENCOUNTER 2018-11-26 12:10 | Outpatient (CLI) | payer OTHER | END 2018-11-26 23:59 | disposition home or self-care (01) | LOC: LAB.R 12:10 | PROVIDERS: ATTEND Physician Assistant Medical | DX: N39.0 Urinary tract infection, site not specified (principal) | CPT/HCPCS: 87086 ==

== ENCOUNTER 2018-12-05 11:17 | Day surgery (SDC) | payer OTHER ==
[~2018-12-05 11:17] MED LIST changes: +BUPIVACAINE 0.5% PF 10 ML VIAL ONE; +DEXAMETHASONE 4 MG/ML VIAL IVP ONE; +HYDROmorphone 1 MG/ML SYRINGE IM ONE; +KETOROLAC 30 MG/ML VIAL IVP ONE; +MIDAZOLAM 2 MG/2 ML VIAL IVP ONE; +ONDANSETRON 4 MG/2 ML VIAL IVP ONE; +PROPOFOL 1000 MG/100 ML IV ONE; +ROCURONIUM 50 MG/5 ML VIAL IVP ONE; -ceFAZolin 2 GM/50 ML 2 GM/50 ML BAG IV ONE; +ceFAZolin 3 GM in SODIUM CHLORIDE 0.9% 100ML 100 ML IV SCH; +fentaNYL 100 MCG/2 ML VIAL IVP ONE
[2018-12-05] MEDS ORDERED: LACTATED RINGERS 1,000 ML IV ONE ×3 (11:34→16:29)
--- NOTE | 2018-12-05 12:07 | ANESTHESIA ---
Pre-Anesthesia VS, & Labs - Diagnosis Bilateral inguinal hernias, hydrocelectomy - Procedure bilateral IHR Vital Signs: Temp Pulse Resp BP Pulse Ox 36.4 C L 57 L 18 119/78 97 12/05/18 11:24 12/05/18 11:24 12/05/18 11:24 12/05/18 11:24 12/05/18 11:24 Height 5 ft 8 in Weight (kg) 118 kg Body Mass Index 38.7 - NPO Last Fluid Intake: 929 Black coffee Home Medications and Allergies Home Medications: Ambulatory Orders Hydrocortisone [Aquanil Hc] 1 applic TP BID 11/24/18 Ibuprofen 400 mg PO Q6H PRN 11/24/18 Metoprolol Succinate 25 mg PO QPM 11/24/18 Losartan Potassium [Cozaar] 100 mg PO DAILY 07/10/13 Hydrochlorothiazide 12.5 mg ORAL DAILY 12/11/16 Hydrocortisone [Aquanil Hc] 1 applic TP BID 11/24/18 Ibuprofen 400 mg PO Q6H PRN 11/24/18 Metoprolol Succinate 25 mg PO QPM 11/24/18 Allergies/Adverse Reactions: Allergies Allergy/AdvReac Type Severity Reaction Status Date / Time Sulfa (Sulfonamide Allergy Unknown Verified 11/17/18 11:15 Antibiotics) codeine AdvReac Unknown Emesis Verified 11/17/18 11:15 lisinopril AdvReac Unknown Rash Verified 11/17/18 11:15 nifedipine AdvReac Unknown Anaphylaxis Verified 11/24/18 13:09 simvastatin [From Zocor] AdvReac Unknown Rash Verified 11/17/18 11:15 melatonin AdvReac nightmares Verified 11/24/18 13:49 Anes History & Medical History - Anesthetic History Anesthesia Complications: reports: No previous complications - Medical History Cardiovascular: reports: Hypertension Pulmonary: reports: None Gastrointestinal: reports: GERD (poorly controlled.) Urinary: reports: Benign prostate hypertrophy, Other Neuro: reports: None Musculoskeletal: reports: None Endocrine/Autoimmune: reports: None Blood Disorders: reports: Anemia Skin: reports: None Smoking Status: Former smoker (quit 20 years ago) - Surgical History General: Colonoscopy Urologic: Prostatic surgery Neurologic:  Orthopedic: Other (knee surgery) Dermatologic: Skin grafts Exam General: Alert, Oriented x3, Cooperative, No acute distress Dental: WNL Mouth Openin Fingerbreadth Neck Mobility: Normal Mallampati classification: II Thyromental Distance: greater than 6 cm Respiratory: Lungs clear, Normal breath sounds, No respiratory distress, No accessory muscle use Cardiovascular: Regular rate, Normal S1, Normal S2, No murmurs Mental/Cognitive Status: Alert/Oriented X3, Normal for patient Plan Anesthesia Type: General Consent for Procedure(s) Verified and Reviewed: Yes Code Status: Attempt Resuscitation ASA classification: 2-Mild systemic disease Is this case an emergency?: No
[2018-12-05] MEDS ORDERED: BUPIVACAINE 0.5% PF 30 ML VIAL SUBQ ONE ×2 (12:57→14:58)
[2018-12-05] MEDS ORDERED: HYDROmorphone 0.5 MG/0.5 ML SYRINGE IVP PRN (15:16)
[2018-12-05] MEDS ORDERED: HYDROcod/ACETAM 5/325 MG TABLET PO PRN (15:16)
[2018-12-05] MEDS ORDERED: ONDANSETRON 4 MG/2 ML VIAL IVP PRN (15:16)
--- NOTE | 2018-12-05 15:21 | OPERATIVE REPORT ---
Operative Report - General Planned Procedure: Bilateral inguinal herniorrhaphy and hydrocelectomy Pre-Op Diagnosis: Bilateral inguinal hernia and hydrocele Procedure Performed: Left indirect inguinal herniorrhaphy with mesh, excision cord lipoma, hydrocelectomy Right direct inguinal herniorrhaphy with mesh, hydrocelectomy Post Op Diagnosis: As above - Procedure Note Primary Surgeon: Jose Chappell MD Anesthesia Provider: Nelson Michaels CRNA Anesthesia Technique: General ET tube, Local (15 mL of half percent Marcaine on each side) IV Fluids (mL): 1,300 Estimated Blood Loss (mL): 25 Complications: None. - Other Other Information/Narrative: OPERATIVE DESCRIPTION/REPORT: After verbal and written informed consent was obtained detailing the risks of infection, bleeding requiring transfusion with its risks, nerve injury, and , and after I met with the patient confirming the surgery and the site of the surgery and after initialing the site of the surgery with a surgical marker, the patient was brought to the operative suite and placed supine on the operating table. Great care was taken to avoid pressure points to prevent pressure necrosis or nerve injury. Monitoring devices were applied along with TEDs and pneumatic compressive stockings (to prevent DVT). The patient received preoperative antibiotics for surgical prophylaxis. Nelson Michaels CRNA sedated and anesthetized the patient for the entire procedure. The patient was prepped and draped in the usual sterile manner. With the patient draped my initials were clearly visible. A "time in" then confirmed that the patient was identified with 3 identifiers (name, date and medical record number), the history and physical was in the chart, the signed consent confirming the procedure was in the chart, the patient was in the correct position, the aforementioned prophylactic measures were in place or given, we had the correct personnel and equipment to complete the procedure and that anesthesia, surgery and nursing were given an opportunity to express any concerns. With the agreement of everyone in the room, we proceeded with the operation. I addressed my attention to the right side first. A standard inguinal incision was made and dissection was carried down to the external oblique aponeurosis using a combination of Metzenbaum scissors and Bovie electrocautery. The external oblique aponeurosis was cleared of overlying adherent tissue, and the external ring was delineated. I would be remiss if I did not mention the fact that the patient's body habitus required extensive dissection and the significant operative interventions were done at a distance 3 times deeper than normal. The external oblique was the incised with a scalpel and this incision was carried out to the external ring using Metzenbaum scissors. Having exposed the inguinal canal, the cord structures were from the canal using blunt dissection, and a Daviston drain was placed around the cord structures at the level of the pubic tubercle. This Daviston drain was then used to retract the cord structures as needed. Adherent cremasteric muscle was dissected free from the cord using Bovie electrocautery. Traction on the cord was then used to bring the right testicle up into the incision where a small hydrocele was noted. This hydrocele was entered sharply using Metzenbaum scissors and the free portion of the sac was excised using serial application of Bovie. As there was no significant bleeding I did not oversew the edge of the sac. The cord was then explored using a combination of sharp and blunt dissection, and the sac was found anteromedially to the cord structures. Dissection along the cord structures found a lipoma that was dissected back to the internal ring, ligated with a 3-0 Vicryl, transected, the stump cauterized and allowed to retract back into the abdomen. The sac was dissected free from the cord structures using a combination of blunt dissection and Bovie electrocautery. Once preperitoneal fat was encountered, the dissection stopped and the sac was high ligated with a 2-0 PDS, transected, the stump cauterized and allowed to retract back into the abdominal cavity and a large Bard Perfix plug (Ref# [], Lot# [], use date []) inserted into the internal ring. The plug was secured to the internal ring by interrupted 2-0 PDS sutures. The Bard Perfix enlay patch was then placed on the floor of the inguinal canal and secured in place using interrupted 0 PDS sutures to the conjoined tendon superiorly, pubic tubercle medially, and shelving edge inferiorly. By reinforcing the floor with the enlay patch, a new internal ring was thus formed. The Daviston drain was removed. The wound was then irrigated using sterile saline, and hemostasis was obtained using Bovie electrocautery. The incision in the external oblique was approximated using a 3-0 Vicryl in a running fashion, thus reforming the external ring. The fascia and skin was then injected with the 1/2% marcaine for long-term pain control. The skin incision was approximated with 4-0 Monocryl in a subcuticular fashion. I turned my attention to the left hand side. A standard inguinal incision was made and dissection was carried down to the external oblique aponeurosis using a combination of Metzenbaum scissors and Bovie electrocautery. The external oblique aponeurosis was cleared of overlying adherent tissue, and the external ring was delineated. Obviously the same issues with body habitus applied here. The external oblique was the incised with a scalpel and this incision was carried out to the external ring using Metzenbaum scissors. Having exposed the inguinal canal, the cord structures were from the canal using blunt dissection, and a Daviston drain was placed around the cord structures at the level of the pubic tubercle. This Reece drain was then used to retract the cord structures as needed. Adherent cremasteric muscle was dissected free from the cord using Bovie electrocautery. Traction on the cord was then used to bring the right testicle up into the incision where a moderate hydrocele was noted. This hydrocele was entered sharply using Metzenbaum scissors and the free portion of the sac was excised using serial application of Bovie. Again, as there was no significant bleeding I did not oversew the edge of the sac. The cord was then explored using a combination of sharp and blunt dissection, and an indirect sac was not found. Instead, there was a large direct inguinal hernia. I did not remove the slightly smaller lipoma on the left side. A large Bard Perfix plug (Ref# [], Lot# [], use date []) inserted into the direct defect and sewn to the shelving edge as well as the conjoined tendon to keep the hernia sac out of my way during the repair. The Bard Perfix enlay patch was then placed on the floor of the inguinal canal and secured in place using interrupted 0 PDS sutures to the conjoined tendon superiorly, pubic tubercle medially, and shelving edge inferiorly. By replacing the floor with the enlay patch the direct inguinal hernia was repaired and, a new internal ring was thus formed. The Daviston drain was removed. The wound was then irrigated using sterile saline, and hemostasis was obtained using Bovie electrocautery. The incision in the external oblique was approximated using a 3-0 Vicryl in a running fashion, thus reforming the external ring. The fascia and skin was then injected with the 1/2% marcaine for intermediate accountant pain control. The skin incision was approximated with 4-0 Monocryl in a subcuticular fashion. The prep was washed off and Dermabond was applied on both incisions. At this point a time out was performed that confirmed that all the counts were correct, the procedure that was performed, the blood loss, the IV fluids administered, and the patients condition. A dressing was then applied. Gentle downward traction ensured that the testes were well seated in the scrotum (the left side required a little bit more than gentle traction). Having tolerated the procedure well, the patient was taken to short stay in good and stable condition. [employer]ulu disclaimer: This document was created in part using voice recognition technology. Because of the inherent limitations of the system ([employer] user manual states that the licensee understands that speech recognition is a statistical process and that recognition errors are inherent in the process), occasional same sounding word substitutions and grammatical errors do occur and persist despite proofreading. Please read this document for context. Awaiting the mesh information to complete the dictation otherwise this is factually correct
[2018-12-05] MEDS ORDERED: PROMETHAZINE 25 MG/1 ML VIAL ONE (15:45)
[2018-12-05] MEDS ORDERED: SODIUM CHLORIDE FLUSH 0.9% 10 ML SYRINGE ONE (15:46)
[2018-12-05] MEDS ORDERED: SCOPOLAMINE PATCH TOP ONE (16:13)
[2018-12-05] MEDS ORDERED: HYDROcod/ACETAM 5/325 MG TABLET ONE (16:47)
[2018-12-05 17:35] VITALS: BP 138/71
== END 2018-12-05 11:18 | disposition home or self-care (01) ==
LOC: SDS 11:17
PROVIDERS: ATTEND Surgery
PROC: 0VBH0ZZ Excision of Bilateral Spermatic Cords, Open Approach (ICD-10-PCS; 2018-12-05)
PROC: 0VBF0ZZ Excision of Right Spermatic Cord, Open Approach (ICD-10-PCS; 2018-12-05)
PROC: 0YUA0JZ Supplement Bilateral Inguinal Region with Synthetic Substitute, Open Approach (ICD-10-PCS; principal; 2018-12-05 12:15)
DX: K40.20 Bilateral inguinal hernia, without obstruction or gangrene, not specified as recurrent (principal); D17.6 Benign lipomatous neoplasm of spermatic cord; N43.3 Hydrocele, unspecified; I10 Essential (primary) hypertension; Z87.891 Personal history of nicotine dependence; E66.9 Obesity, unspecified; Z68.41 Body mass index [BMI] 40.0-44.9, adult; N40.0 Benign prostatic hyperplasia without lower urinary tract symptoms
CPT/HCPCS: 49505; 55500; 55520; A9270; C1781; J1170; J3490; J7120

== ENCOUNTER 2019-03-01 13:10 | Emergency (ER) | payer OTHER ==
--- NOTE | 2019-03-01 13:33 | ED Physician Documentation ---
PD HPI CHEST PAIN - Stated complaint Stated Complaint: INCREASE BP/LIGHT HEADED - Chief complaint Chief Complaint: Cardiac - History obtained from History obtained from: Patient - History of Present Illness Timing - onset: Other (64-year-old gentleman with history of hypertension on losartan and hydrochlorothiazide presents with fairly constant nonexertional central nonradiating chest pressure that is been going on for a week. Now for the last 2 days he has had exertional dyspnea which is better when supine. There is no associated pedal edema. Today he felt dizzy while watching the football game and checked his blood pressure and it was 190/100 or so prompting emergency department visit. He has been compliant with his antihypertensives.) Review of Systems Ten Systems: 10 systems reviewed and negative Constitutional: denies: Fever, Chills, Fatigue Throat: denies: Sore throat Cardiac: reports: Chest pain / pressure. denies: Palpitations, Pedal edema, Calf pain Respiratory: reports: Dyspnea. denies: Cough, Hemoptysis, Wheezing GI: denies: Abdominal Pain PD PAST MEDICAL HISTORY - Past Medical History Cardiovascular: Hypertension Respiratory: None Neuro: None Endocrine/Autoimmune: None GI: GERD (poorly controlled.) : Benign prostate hypertrophy, Other HEENT: Chronic vision loss Psych: Anxiety Musculoskeletal: None Derm: None - Past Surgical History Past Surgical History: Yes General: Colonoscopy Ortho: Other (knee surgery) Derm: Skin grafts - Present Medications Home Medications: Ambulatory Orders Medication Instructions Recorded Confirmed Losartan Potassium [Cozaar] 100 mg PO DAILY 07/10/13 12/05/18 Hydrochlorothiazide 12.5 mg ORAL DAILY 12/11/16 12/05/18 Hydrocortisone [Aquanil Hc] 1 applic TP BID 11/24/18 12/05/18 Ibuprofen 400 mg PO Q6H PRN 11/24/18 12/05/18 Metoprolol Succinate 25 mg PO QPM 11/24/18 12/05/18 Docusate Sodium 250Mg Capsule 250 mg PO DAILY #10 capsule 12/05/18 [Colace 250Mg Capsule] HYDROcod/ACETAM 5/325 [[place] 5/325] 1 each PO Q4H #20 tablet 12/05/18 - Allergies Allergies/Adverse Reactions: Allergies Allergy/AdvReac Type Severity Reaction Status Date / Time Sulfa (Sulfonamide Allergy Unknown Verified 03/01/19 13:12 Antibiotics) codeine AdvReac Unknown Emesis Verified 03/01/19 13:12 lisinopril AdvReac Unknown Rash Verified 03/01/19 13:12 nifedipine AdvReac Unknown Anaphylaxis Verified 03/01/19 13:12 simvastatin [From Zocor] AdvReac Unknown Rash Verified 03/01/19 13:12 melatonin AdvReac nightmares Verified 03/01/19 13:12 - Social History Does the pt smoke?: No Smoking Status: Former smoker (quit 20 years ago) Does the pt drink ETOH?: No Does the pt have substance abuse?: No - Immunizations Immunizations are current?: Yes - POLST Patient has POLST: No PD ED PE NORMAL - Vitals Vital signs reviewed: Yes - General General: Alert and oriented X 3, No acute distress - HEENT HEENT: PERRL, EOMI - Neck Neck: Supple, no meningeal sign, No bony TTP - Cardiac Cardiac: RRR, No murmur - Respiratory Respiratory: No respiratory distress, Other (Very mild expiratory wheezes) - Abdomen Abdomen: Soft, Non tender - Back Back: No CVA TTP, No spinal TTP - Derm Derm: Normal color, Warm and dry - Extremities Extremities: No edema, No calf tenderness / cord - Neuro Neuro: Alert and oriented X 3, Normal speech Results - Vitals Vitals: Vital Signs - 24 hr 03/01/19 03/01/19 03/01/19 13:12 13:20 13:30 Temperature 36.5 C 36.6 C Heart Rate 97 90 82 Respiratory 16 18 16 Rate Blood Pressure 175/85 H 169/98 H 155/85 H O2 Saturation 96 98 97 03/01/19 03/01/19 03/01/19 13:38 13:48 14:13 Temperature Heart Rate 84 75 77 Respiratory 21 16 16 Rate Blood Pressure 155/85 H 147/75 H 136/77 H O2 Saturation 98 97 97 03/01/19 14:41 Temperature 36.3 C L Heart Rate 78 Respiratory 16 Rate Blood Pressure 131/80 H O2 Saturation 97 Oxygen O2 Source Room air - EKG (time done) 1322 Rate: Rate (enter#) (88) Rhythm: NSR [place]: Normal Intervals: Normal DE Ischemia: Non specific changes (Flat inferior T waves). No: ST elevation c/w ischemia, ST depression Computer interpretation: Agree with computer - Labs Labs: Laboratory Tests 03/01/19 03/01/19 03/01/19 13:40 13:40 13:40 WBC 8.5 RBC 4.44 L Hgb 14.0 Hct 41.9 L MCV 94.4 H MCH 31.5 H MCHC 33.4 RDW 13.6 Plt Count 263 MPV 9.3 Neut # (Auto) 6.3 Lymph # (Auto) 1.3 L [place] # (Auto) 0.7 Eos # (Auto) 0.1 Baso # (Auto) 0.0 Absolute Nucleated RBC 0.00 Nucleated RBC % 0.0 D-Dimer < 200.0 L Sodium 141 Potassium 3.8 Chloride 106 Carbon Dioxide 26 Anion Gap 9.0 BUN 20 Creatinine 1.1 Estimated GFR (MDRD) 67 L Glucose 121 H Calcium 9.4 Total Bilirubin 0.7 AST 19 ALT 18 Alkaline Phosphatase 42 Troponin I High Sens B-Natriuretic Peptide Total Protein 8.0 Albumin 4.2 Globulin 3.8 Albumin/Globulin Ratio 1.1 Lipase 33 03/01/19 03/01/19 13:40 13:40 WBC RBC Hgb Hct MCV MCH MCHC RDW Plt Count MPV Neut # (Auto) Lymph # (Auto) [place] # (Auto) Eos # (Auto) Baso # (Auto) Absolute Nucleated RBC Nucleated RBC % D-Dimer Sodium Potassium Chloride Carbon Dioxide Anion Gap BUN Creatinine Estimated GFR (MDRD) Glucose Calcium Total Bilirubin AST ALT Alkaline Phosphatase Troponin I High Sens 3.9 B-Natriuretic Peptide 8 Total Protein Albumin Globulin Albumin/Globulin Ratio Lipase - Rads (name of study) 2v chest Radiology: EMP read contemporaneously (normal) PD MEDICAL DECISION MAKING - ED course ED course: 64-year-old gentleman with chief complaint of elevated blood pressure, ancillary complaints of weeks worth of constant mild chest pressure which she felt like it was indigestion and some exertional shortness of breath. No clinical findings consistent with DVT or CHF, but both were still in the differential but ruled out with BNP and negative d-dimer. ACS is considered but single troponin should be predictive given the time course. 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 Departure - Departure Disposition: 01 Home, Self Care Clinical Impression: Atypical chest pain Hypertension Qualifiers: Hypertension type: essential hypertension Qualified Code(s): I10 - Essential (primary) hypertension Condition: Good Record reviewed to determine appropriate education?: Yes Instructions: ED Chest Pain Atypical Unkn Cause Comments: Your blood pressure improved without specific intervention by just giving you some time. Your blood work and chest x-ray are normal, we have ruled out blood clots, congestive heart failure. Return for new worsening symptoms. Follow-up with your doctor this week. Continue your current blood pressure medications.
[2019-03-01 13:48] LABS: BASOPHILS % (AUTO) 0.5 %; EOSINOPHILS # (AUTO) 0.1 10^3/uL (0.0-0.7); EOSINOPHILS % (AUTO) 1.7 %; LYMPHOCYTES # (AUTO) 1.3 10^3/uL (1.5-3.5); LYMPHOCYTES % (AUTO) 15.4 %; MEAN CORPUSCULAR HEMOGLOBIN 31.5 pg (27.0-31.0); MEAN CORPUSCULAR HGB CONC 33.4 g/dL (32.0-36.0); MEAN CORPUSCULAR VOLUME 94.4 fL (80.0-94.0); MEAN PLATELET VOLUME 9.3 fL (7.4-11.4); MONOCYTES # (AUTO) 0.7 10^3/uL (0.0-1.0); NEUTROPHILS # (AUTO) 6.3 10^3/uL (1.5-6.6); NEUTROPHILS % (AUTO) 74.2 %; PLT - PLATELET COUNT 263 10^3/uL (130-450); RED BLOOD COUNT 4.44 10^6/uL (4.70-6.10); RED CELL DISTRIBUTION WIDTH 13.6 % (12.0-15.0); WHITE BLOOD COUNT 8.5 x10^3/uL (4.8-10.8)
[2019-03-01 14:02] LABS: ALBUMIN 4.2 g/dL (3.2-5.5); ALBUMIN/GLOBULIN RATIO 1.1 (1.0-2.2); BILIRUBIN,TOTAL 0.7 mg/dL (0.2-1.0); CALCIUM 9.4 mg/dL (8.5-10.3); CREATININE 1.1 mg/dL (0.6-1.2)
[2019-03-01 14:42] VITALS: BP 131/80
--- NOTE | 2019-03-01 14:42 | XRAY Report ---
Reason: dyspnea Procedure Date: 03/01/2019 Accession Number: [id number] / [id number] Procedure: XR - Chest 2 View X-Ray CPT Code: 79097 FULL RESULT: EXAM: CHEST RADIOGRAPHY EXAM DATE: 03/01/2019 01:51 PM. CLINICAL HISTORY: Dyspnea. COMPARISON: CHEST 2 VIEW 08/04/2018 12:05 PM. TECHNIQUE: 2 views. FINDINGS: Lungs/Pleura: No focal opacities evident. No pleural effusion. No pneumothorax. Normal volumes. Mediastinum: Heart and mediastinal contours are unremarkable. Other: None. IMPRESSION: Normal 2-view chest radiography. RAD[facility]
== END 2019-03-01 14:49 | disposition home or self-care (01) ==
LOC: ED 13:10
DX: R07.89 Other chest pain (principal); I10 Essential (primary) hypertension; R06.2 Wheezing; Z87.891 Personal history of nicotine dependence
CPT/HCPCS: 36415; 71046; 80053; 83690; 83880; 84484; 85025; 85379; 93005; 99284

== ENCOUNTER 2019-03-06 11:47 | Outpatient (CLI) | payer OTHER ==
[2019-03-06 13:17] LABS: RHEUMATOID FACTOR NEGATIVE (Negative)
[2019-03-16 11:09] LABS: ANA SCREEN Positive
== END 2019-03-06 11:48 | disposition home or self-care (01) ==
LOC: LAB 11:47
PROVIDERS: ATTEND Physician Assistant
DX: L94.0 Localized scleroderma [morphea] (principal); L29.8 Other pruritus
CPT/HCPCS: 36415; 85651; 86038; 86430

== ENCOUNTER 2019-03-18 11:42 | Outpatient (CLI) | payer OTHER | END 2019-03-18 11:43 | disposition home or self-care (01) | LOC: LAB.S 11:42 | PROVIDERS: ATTEND Family Medicine | DX: R76.0 Raised antibody titer (principal) | CPT/HCPCS: 36415; 86038 ==

== ENCOUNTER 2019-06-11 22:48 | Emergency (ER) | payer OTHER ==
[2019-06-11 23:16] LABS: BASOPHILS # (AUTO) 0.1 10^3/uL (0.0-0.1); BASOPHILS % (AUTO) 0.7 %; EOSINOPHILS # (AUTO) 0.1 10^3/uL (0.0-0.7); EOSINOPHILS % (AUTO) 1.1 %; HGB - HEMOGLOBIN 14.2 g/dL (14.0-18.0); LYMPHOCYTES # (AUTO) 1.3 10^3/uL (1.5-3.5); LYMPHOCYTES % (AUTO) 14.6 %; MEAN CORPUSCULAR HEMOGLOBIN 31.3 pg (27.0-31.0); MEAN CORPUSCULAR HGB CONC 33.5 g/dL (32.0-36.0); MEAN CORPUSCULAR VOLUME 93.6 fL (80.0-94.0); MEAN PLATELET VOLUME 8.8 fL (7.4-11.4); MONOCYTES # (AUTO) 0.7 10^3/uL (0.0-1.0); MONOCYTES % (AUTO) 8.2 %; NEUTROPHILS # (AUTO) 6.6 10^3/uL (1.5-6.6); NEUTROPHILS % (AUTO) 75.1 %; PLT - PLATELET COUNT 277 10^3/uL (130-450); RED BLOOD COUNT 4.53 10^6/uL (4.70-6.10); RED CELL DISTRIBUTION WIDTH 13.7 % (12.0-15.0); WHITE BLOOD COUNT 8.8 x10^3/uL (4.8-10.8)
[2019-06-11 23:33] LABS: ALBUMIN 4.1 g/dL (3.2-5.5); ALBUMIN/GLOBULIN RATIO 1.2 (1.0-2.2); BILIRUBIN,TOTAL 0.5 mg/dL (0.2-1.0); CALCIUM 9.1 mg/dL (8.5-10.3); CREATININE 0.8 mg/dL (0.6-1.2); TOTAL PROTEIN 7.5 g/dL (6.7-8.2)
--- NOTE | 2019-06-12 02:25 | ED Physician Documentation ---
History of Present Illness - Stated complaint Stated Complaint: RHR, HBP - Chief complaint Chief Complaint: Cardiac - History obtained from History obtained from: Patient (Patient is a very pleasant 64-year-old male who presents with a chief complaint of palpitations prior to arrival by the time I evaluated the patient the patient denies any symptoms whatsoever and he would like to be discharged home at this time. 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 he would like to be discharged home at this time.The patient is refusing any further additional testing by the time I valuated him.The patient is refusing EKG and chest x-ray as well as any additional lab work.) Review of Systems Ten Systems: 10 systems reviewed and negative Constitutional: reports: Reviewed and negative Eyes: reports: Reviewed and negative Ears: reports: Reviewed and negative Nose: reports: Reviewed and negative Throat: reports: Reviewed and negative Cardiac: reports: Palpitations Respiratory: reports: Reviewed and negative GI: reports: Reviewed and negative : reports: Reviewed and negative Skin: reports: Reviewed and negative Musculoskeletal: reports: Reviewed and negative Neurologic: reports: Reviewed and negative Psychiatric: reports: Reviewed and negative Endocrine: reports: Reviewed and negative Immunocompromised: reports: Reviewed and negative PD PAST MEDICAL HISTORY - Past Medical History Cardiovascular: Hypertension Respiratory: None Neuro: None Endocrine/Autoimmune: None GI: GERD (poorly controlled.) : Benign prostate hypertrophy, Other HEENT: Chronic vision loss Psych: Anxiety Musculoskeletal: None Derm: None - Past Surgical History Past Surgical History: Yes General: Colonoscopy Ortho: Other (knee surgery) Derm: Skin grafts - Present Medications Home Medications: Ambulatory Orders Medication Instructions Recorded Confirmed Losartan Potassium [Cozaar] 100 mg PO DAILY 07/10/13 12/05/18 Hydrochlorothiazide 12.5 mg ORAL DAILY 12/11/16 12/05/18 Hydrocortisone [Aquanil Hc] 1 applic TP BID 11/24/18 12/05/18 Ibuprofen 400 mg PO Q6H PRN 11/24/18 12/05/18 Metoprolol Succinate 25 mg PO QPM 11/24/18 12/05/18 Docusate Sodium 250Mg Capsule 250 mg PO DAILY #10 capsule 12/05/18 [Colace 250Mg Capsule] HYDROcod/ACETAM 5/325 [[place] 5/325] 1 each PO Q4H #20 tablet 12/05/18 - Allergies Allergies/Adverse Reactions: Allergies Allergy/AdvReac Type Severity Reaction Status Date / Time Sulfa (Sulfonamide Allergy Unknown Verified 06/11/19 23:18 Antibiotics) codeine AdvReac Unknown Emesis Verified 06/11/19 23:18 lisinopril AdvReac Unknown Rash Verified 06/11/19 23:18 nifedipine AdvReac Unknown Anaphylaxis Verified 06/11/19 23:18 simvastatin [From Zocor] AdvReac Unknown Rash Verified 06/11/19 23:18 melatonin AdvReac nightmares Verified 06/11/19 23:18 - Social History Does the pt smoke?: No Smoking Status: Former smoker (quit 20 years ago) Does the pt drink ETOH?: No Does the pt have substance abuse?: No - Immunizations Immunizations are current?: Yes - POLST Patient has POLST: No PD ED PE NORMAL - Vitals Vital signs reviewed: Yes - General General: Alert and oriented X 3, No acute distress - HEENT HEENT: PERRL - Neck Neck: Supple, no meningeal sign - Cardiac Cardiac: RRR, No murmur - Respiratory Respiratory: Clear bilaterally - Abdomen Abdomen: Normal bowel sounds, Soft, Non tender, Non distended - Derm Derm: Warm and dry - Extremities Extremities: No deformity - Neuro Neuro: Alert and oriented X 3 - Psych Psych: Normal mood, Normal affect Results - Vitals Vitals: Vital Signs - 24 hr 06/11/19 06/12/19 06/12/19 23:00 02:10 02:59 Temperature 37.1 C 36.8 C Heart Rate 71 82 65 Respiratory 16 16 20 Rate Blood Pressure 147/96 H 140/97 H 147/98 H O2 Saturation 95 96 98 Oxygen O2 Source Room air - Labs Labs: Laboratory Tests 06/11/19 06/11/19 23:10 23:10 WBC 8.8 RBC 4.53 L Hgb 14.2 Hct 42.4 MCV 93.6 MCH 31.3 H MCHC 33.5 RDW 13.7 Plt Count 277 MPV 8.8 Neut # (Auto) 6.6 Lymph # (Auto) 1.3 L [place] # (Auto) 0.7 Eos # (Auto) 0.1 Baso # (Auto) 0.1 Absolute Nucleated RBC 0.00 Nucleated RBC % 0.0 Sodium 136 Potassium 3.8 Chloride 100 L Carbon Dioxide 24 Anion Gap 12.0 BUN 21 H Creatinine 0.8 Estimated GFR (MDRD) 97 Glucose 109 H Calcium 9.1 Total Bilirubin 0.5 AST 18 ALT 23 Alkaline Phosphatase 35 L Total Protein 7.5 Albumin 4.1 Globulin 3.4 Albumin/Globulin Ratio 1.2 Lipase 30 PD MEDICAL DECISION MAKING - ED course Complexity details: other (I had an extensive discussion regarding the patient he reports that he is symptoM For at this point he would like to be discharged home I explained to him that I would be unable to rule out any life-threatening emergencies if he would not allow me to do a chest x-ray or EKG the patient does have medical decision-making capability capacity and he accepts all rest to include cardiac or respiratory arrest or any adverse outcomes whatsoever and he takes complete and total responsibility for any adverse outcomes.) Departure - Departure Disposition: 01 Home, Self Care Clinical Impression: Palpitations Condition: Good Instructions: Heart Palpitations Follow-Up: Hilary Sofia PA-C [Primary Care Provider] - Discharge Date/Time: 06/12/19 02:59
[2019-06-12 03:00] VITALS: BP 147/98
== END 2019-06-12 02:59 | disposition home or self-care (01) ==
LOC: ED 22:48
DX: R00.2 Palpitations (principal); I10 Essential (primary) hypertension; Z87.891 Personal history of nicotine dependence
CPT/HCPCS: 36415; 80053; 83690; 85025; 93005; 99283

== ENCOUNTER 2019-06-19 14:58 | Outpatient (CLI) | payer OTHER ==
[2019-06-19 17:45] LABS: BASOPHILS % (AUTO) 0.6 %; EOSINOPHILS # (AUTO) 0.2 10^3/uL (0.0-0.7); HGB - HEMOGLOBIN 14.1 g/dL (14.0-18.0); LYMPHOCYTES # (AUTO) 1.5 10^3/uL (1.5-3.5); MEAN CORPUSCULAR HEMOGLOBIN 29.6 pg (27.0-31.0); MEAN CORPUSCULAR HGB CONC 32.1 g/dL (32.0-36.0); MEAN CORPUSCULAR VOLUME 92.2 fL (80.0-94.0); MEAN PLATELET VOLUME 9.8 fL (7.4-11.4); MONOCYTES # (AUTO) 0.5 10^3/uL (0.0-1.0); MONOCYTES % (AUTO) 10.1 %; NEUTROPHILS % (AUTO) 56.9 %; PLT - PLATELET COUNT 281 10^3/uL (130-450); RED BLOOD COUNT 4.76 10^6/uL (4.70-6.10); RED CELL DISTRIBUTION WIDTH 13.9 % (12.0-15.0); WHITE BLOOD COUNT 5.3 x10^3/uL (4.8-10.8)
[2019-06-19 18:35] LABS: ALBUMIN 4.2 g/dL (3.2-5.5); ALBUMIN/GLOBULIN RATIO 1.3 (1.0-2.2); ALKALINE PHOSPHATASE 33 IU/L (42-121); ALT ALANINE AMINOTRANSFERASE 22 IU/L (10-60); AST ASPARTATE AMINOTRANSFERASE 17 IU/L (10-42); BILIRUBIN,TOTAL 0.8 mg/dL (0.2-1.0); BUN - BLOOD UREA NITROGEN 17 mg/dL (6-20); CALCIUM 9.3 mg/dL (8.5-10.3); CARBON DIOXIDE - CO2 26 mmol/L (21-32); CHLORIDE 97 mmol/L (101-111); CREATININE 0.9 mg/dL (0.6-1.2); GFR - MDRD 85 (>89); GLUCOSE 93 mg/dL (70-100); SODIUM 136 mmol/L (135-145); TOTAL PROTEIN 7.4 g/dL (6.7-8.2); VALPROIC ACID (DEPAKOTE) 107.9 ug/mL
== END 2019-06-19 14:59 | disposition home or self-care (01) ==
LOC: LAB.S 14:58
PROVIDERS: ATTEND Physician Assistant Medical
DX: G40.909 Epilepsy, unspecified, not intractable, without status epilepticus (principal); Z79.899 Other long term (current) drug therapy
CPT/HCPCS: 36415; 80053; 80164; 85025

== ENCOUNTER 2019-10-20 20:38 | Emergency (ER) | payer OTHER ==
[2019-10-20 20:46] VITALS: BP 153/81
--- NOTE | 2019-10-20 20:51 | ED Physician Documentation ---
History of Present Illness - Stated complaint Stated Complaint: FELL IN BATH TUB - RIB PAIN - Chief complaint Chief Complaint: Trauma Ch/Bk - History obtained from History obtained from: Patient (The patient is a 64-year-old male who is compla int of right rib pain. The patient reports 2 days ago he fell getting out of the bathtub from a sitting position accidentally hit his right rib cage on the side of the bathtub he denies any excessive bruising or syncopal episodes denies any head or neck pain or loss of consciousness denies any anticoagulation.) Review of Systems Constitutional: reports: Reviewed and negative Eyes: reports: Reviewed and negative Ears: reports: Reviewed and negative Nose: reports: Reviewed and negative Throat: reports: Reviewed and negative Cardiac: reports: Reviewed and negative Respiratory: reports: Other (Right rib pain) GI: reports: Reviewed and negative : reports: Reviewed and negative Skin: reports: Reviewed and negative Musculoskeletal: reports: Reviewed and negative Neurologic: reports: Reviewed and negative Psychiatric: reports: Reviewed and negative Endocrine: reports: Reviewed and negative Immunocompromised: reports: Reviewed and negative PD PAST MEDICAL HISTORY - Past Medical History Cardiovascular: Hypertension Respiratory: None Neuro: None Endocrine/Autoimmune: None GI: GERD (poorly controlled.) : Benign prostate hypertrophy, Other HEENT: Chronic vision loss Psych: Anxiety Musculoskeletal: None Derm: None - Past Surgical History Past Surgical History: Yes General: Colonoscopy Ortho: Other (knee surgery) Derm: Skin grafts - Present Medications Home Medications: Ambulatory Orders Medication Instructions Recorded Confirmed Losartan Potassium [Cozaar] 100 mg PO DAILY 07/10/13 12/05/18 Hydrochlorothiazide 12.5 mg ORAL DAILY 12/11/16 12/05/18 Hydrocortisone [Aquanil Hc] 1 applic TP BID 11/24/18 12/05/18 Ibuprofen 400 mg PO Q6H PRN 11/24/18 12/05/18 Metoprolol Succinate 25 mg PO QPM 11/24/18 12/05/18 Docusate Sodium 250Mg Capsule 250 mg PO DAILY #10 capsule 12/05/18 [Colace 250Mg Capsule] HYDROcod/ACETAM 5/325 [[place] 5/325] 1 each PO Q4H #20 tablet 12/05/18 Hydrocodone/Acetaminophen [[place] 1 each PO Q6HR PRN #10 tablet 10/20/19 5-325 Tablet] Ondansetron Odt [Zofran Odt] 4 mg TL Q6H PRN #10 tablet 10/20/19 - Allergies Allergies/Adverse Reactions: Allergies Allergy/AdvReac Type Severity Reaction Status Date / Time Sulfa (Sulfonamide Allergy Unknown Verified 10/20/19 20:42 Antibiotics) codeine AdvReac Unknown Emesis Verified 10/20/19 20:42 lisinopril AdvReac Unknown Rash Verified 10/20/19 20:42 nifedipine AdvReac Unknown Anaphylaxis Verified 10/20/19 20:42 simvastatin [From Zocor] AdvReac Unknown Rash Verified 10/20/19 20:42 melatonin AdvReac nightmares Verified 10/20/19 20:42 - Social History Does the pt smoke?: No Smoking Status: Former smoker (quit 20 years ago) Does the pt drink ETOH?: No Does the pt have substance abuse?: No - Immunizations Immunizations are current?: Yes - POLST Patient has POLST: No PD ED PE NORMAL - Vitals Vital signs reviewed: Yes - General General: Alert and oriented X 3, No acute distress - HEENT HEENT: PERRL, Moist mucous membranes - Neck Neck: Supple, no meningeal sign - Cardiac Cardiac: RRR, No murmur, Strong equal pulses - Respiratory Respiratory: No respiratory distress, Clear bilaterally, Other (There is tenderness to palpation in the axillary line over right ribs 5 and 6 there is no crepitus there is no step-offs or deformities there is no ecchymosis or erythema. Breath sounds are present bilaterally and is no wheezes rales or rhonchi.) - Abdomen Abdomen: Normal bowel sounds, Soft, Non tender, Non distended - Derm Derm: Warm and dry - Extremities Extremities: No deformity - Neuro Neuro: Alert and oriented X 3, department helper 2-12 intact, No motor deficit, No sensory deficit, Normal speech - Psych Psych: Normal mood, Normal affect Results - Vitals Vitals: Vital Signs - 24 hr 10/20/19 20:42 Temperature 36.6 C Heart Rate 66 Respiratory 16 Rate Blood Pressure 153/81 H O2 Saturation 97 Oxygen O2 Source Room air PD MEDICAL DECISION MAKING - ED course Complexity details: considered differential (History and exam are consistent with costochondral injury possible rib fracture plain films show no obvious fracture. Patient will be treated supportively with analgesia and antiemetics and close follow-up tomorrow with his PCP.) Departure - Departure Disposition: 01 Home, Self Care Clinical Impression: Contusion of rib on right side Qualifiers: Encounter type: initial encounter Qualified Code(s): S20.211A - Contusion of right front wall of thorax, initial encounter Condition: Stable Instructions: ED Contusion Rib Follow-Up: Hilary Sofia PA-C [Primary Care Provider] - Tomorrow Prescriptions: Hydrocodone/Acetaminophen [[place] 5-325 Tablet] 1 each PO Q6HR PRN #10 tablet PRN Reason: Pain Ondansetron Odt [Zofran Odt] 4 mg TL Q6H PRN #10 tablet PRN Reason: Nausea / Vomiting Comments: follow up with your primary care provider tomorrow. Discharge Date/Time: 10/20/19 22:24
--- NOTE | 2019-10-20 21:46 | XRAY Report ---
Reason: right rib pain Procedure Date: 10/20/2019 Accession Number: [id number] / [id number] Procedure: XR - Ribs w/PA Chest RT CPT Code: Final Report FULL RESULT: PROCEDURE: Ribs w/PA Chest RT INDICATIONS: right rib pain TECHNIQUE: 6 views of the right ribs were acquired, along with a single view chest. COMPARISON: Chest films dated 03/01/2019 FINDINGS: Surgical changes and devices: None. Bones and chest wall: No fractures or dislocations. No suspicious bony lesions. Overlying soft tissues appear unremarkable. Lungs and pleura: No pleural effusions or pneumothorax. Lungs appear clear. Mediastinum: Mediastinal contours appear normal. Heart size is normal. IMPRESSION: No evidence of displaced right rib fracture. No evidence acute pulmonary process. Reviewed by: Mohan Brooks MD on 10/20/2019 9:45 PM PDT Approved by: Mohan Brooks MD on 10/20/2019 9:45 PM PDT Station ID: [id number]
[2019-10-20] MEDS ORDERED: HYDROcod/ACETAM 5/325 MG TABLET PO STA (22:13)
[2019-10-20] MEDS ORDERED: ONDANSETRON ODT 4 MG TABLET TL STA (22:15)
== END 2019-10-20 22:24 | disposition home or self-care (01) ==
LOC: ED 20:38
DX: S20.211A Contusion of right front wall of thorax, initial encounter (principal); W18.2XXA Fall in (into) shower or empty bathtub, initial encounter; Y93.E1 Activity, personal bathing and showering; Y92.002 Bathroom of unspecified non-institutional (private) residence as the place of occurrence of the external cause; I10 Essential (primary) hypertension
CPT/HCPCS: 71101; 99283; 99284; A9270; Q0162

== ENCOUNTER 2019-11-19 08:34 | Outpatient (CLI) | payer OTHER | END 2019-11-19 08:35 | disposition home or self-care (01) | LOC: LAB.S 08:34 | PROVIDERS: ATTEND Psychiatry & Neurology Neurology | DX: R56.9 Unspecified convulsions (principal) | CPT/HCPCS: 36415; 80175 ==

== ENCOUNTER 2019-11-28 13:36 | Outpatient (CLI) | payer OTHER ==
[2019-11-28 17:28] LABS: BASOPHILS % (AUTO) 0.6 %; EOSINOPHILS # (AUTO) 0.1 10^3/uL (0.0-0.7); EOSINOPHILS % (AUTO) 2.2 %; HGB - HEMOGLOBIN 13.6 g/dL (14.0-18.0); LYMPHOCYTES % (AUTO) 19.3 %; MEAN CORPUSCULAR HEMOGLOBIN 30.8 pg (27.0-31.0); MEAN CORPUSCULAR HGB CONC 32.9 g/dL (32.0-36.0); MEAN CORPUSCULAR VOLUME 93.4 fL (80.0-94.0); MEAN PLATELET VOLUME 9.8 fL (7.4-11.4); MONOCYTES # (AUTO) 0.5 10^3/uL (0.0-1.0); MONOCYTES % (AUTO) 9.7 %; NEUTROPHILS # (AUTO) 3.4 10^3/uL (1.5-6.6); PLT - PLATELET COUNT 257 10^3/uL (130-450); RED BLOOD COUNT 4.42 10^6/uL (4.70-6.10); RED CELL DISTRIBUTION WIDTH 14.4 % (12.0-15.0); WHITE BLOOD COUNT 4.9 x10^3/uL (4.8-10.8)
[2019-11-28 17:46] LABS: % IRON SATURATION 21 % (20-50); ALBUMIN 4.7 g/dL (3.2-5.5); ALBUMIN/GLOBULIN RATIO 1.7 (1.0-2.2); ALKALINE PHOSPHATASE 37 IU/L (42-121); ALT ALANINE AMINOTRANSFERASE 36 IU/L (10-60); AST ASPARTATE AMINOTRANSFERASE 30 IU/L (10-42); BILIRUBIN,TOTAL 0.8 mg/dL (0.2-1.0); BUN - BLOOD UREA NITROGEN 25 mg/dL (6-20); CALCIUM 8.9 mg/dL (8.5-10.3); CARBON DIOXIDE - CO2 24 mmol/L (21-32); CHLORIDE 101 mmol/L (101-111); CHOL/HDL RATIO 5.3 (<5.0); CHOLESTEROL 206 mg/dL; CREATININE 0.9 mg/dL (0.6-1.2); GLUCOSE 90 mg/dL (70-100); HDL CHOLESTEROL 39 mg/dL; IRON 66 ug/dL (45-182); LDL CHOLESTEROL,CALCULATED 152 mg/dL; LDL/HDL RATIO 3.9 (<3.6); SODIUM 136 mmol/L (135-145); TOTAL IRON BINDING CAPACITY 315 ug/dL (250-450); TOTAL PROTEIN 7.4 g/dL (6.7-8.2); TRANSFERRIN 225 mg/dL (180-329); VLDL CHOLESTEROL 15 mg/dL
[2019-11-28 17:54] LABS: HB2 TOTAL 14.7 g/dL; HEMOGLOBIN A1C 0.72 g/dL; HEMOGLOBIN A1C % 6.6 % (4.6-6.2)
[2019-11-28 18:03] LABS: FERRITIN 340.3 ng/mL (23.9-336.2)
== END 2019-11-28 13:37 | disposition home or self-care (01) ==
LOC: LAB.S 13:36
DX: Z01.818 Encounter for other preprocedural examination (principal); E66.01 Morbid (severe) obesity due to excess calories
CPT/HCPCS: 36415; 80053; 80061; 82306; 82607; 82728; 82746; 83036; 83540; 83721; 83921; 83970; 84425; 84443; 84466; 85025

== ENCOUNTER 2019-12-02 13:53 | Outpatient (CLI) | payer OTHER ==
--- NOTE | 2019-12-02 14:44 | XRAY Report ---
PROCEDURE: Chest 2 View X-Ray INDICATIONS: Evaluate for contraindication to surgical intervention. TECHNIQUE: 2 view(s) of the chest. COMPARISON: Prior 10/20/2019 plain films that include the chest. FINDINGS: Surgical changes and devices: None. Lungs and pleura: No pleural effusions or pneumothorax. Lungs are clear. Mediastinum: Mediastinal contours are normal. Heart size is normal. Bones and chest wall: No suspicious bony abnormalities. Note is made of mild focal pleural thickeni ng immediately adjacent to what appears to be a healing or healed right lateral lower rib fracture. S oft tissues appear unremarkable. IMPRESSION: No contraindication to surgical intervention is found. Apparent healing or healed right lower lateral rib fracture. Reviewed by: German Aggarwal MD on 12/02/2019 2:43 PM PDT Approved by: German Aggarwal MD on 12/02/2019 2:43 PM PDT Station ID: [id number]
== END 2019-12-02 13:54 | disposition home or self-care (01) ==
LOC: DI.S 13:53
PROVIDERS: ATTEND Surgery
DX: Z01.818 Encounter for other preprocedural examination (principal); E66.01 Morbid (severe) obesity due to excess calories; Z68.42 Body mass index [BMI] 45.0-49.9, adult
CPT/HCPCS: 71046

== ENCOUNTER 2019-12-03 07:49 | Outpatient (CLI) | payer OTHER | END 2019-12-03 07:50 | disposition home or self-care (01) | LOC: LAB.S 07:49 | DX: Z01.818 Encounter for other preprocedural examination (principal); E66.01 Morbid (severe) obesity due to excess calories | CPT/HCPCS: 84425 ==

== ENCOUNTER 2020-02-05 07:00 | Outpatient (CLI) | payer OTHER ==
[2020-02-05 15:09] LABS: H. PYLORIS ANTIGEN STL NEGATIVE (Negative)
== END 2020-02-05 23:59 | disposition home or self-care (01) ==
LOC: LAB.R 07:00
PROVIDERS: ATTEND Surgery
DX: E66.01 Morbid (severe) obesity due to excess calories (principal); Z68.42 Body mass index [BMI] 45.0-49.9, adult
CPT/HCPCS: 87338

== ENCOUNTER 2020-02-12 13:29 | Outpatient (CLI) | payer OTHER ==
[2020-02-12 15:23] LABS: BILIRUBIN,URINE NEGATIVE (NEGATIVE); GLUCOSE, URINE (UA) NEGATIVE (NEGATIVE); KETONES,URINE (UA) NEGATIVE (NEGATIVE); LEUKOCYTE ESTERASE, URINE NEGATIVE (NEGATIVE); NITRITE,URINE NEGATIVE (NEGATIVE); OCCULT BLOOD,URINE NEGATIVE (NEGATIVE); PH,URINE 6.5 PH (5.0-7.5); PROTEIN,URINE NEGATIVE (NEGATIVE); UROBILINOGEN,URINE 0.2 (NORMAL) E.U./dL (NORMAL)
[2020-02-12 15:57] LABS: CLARITY,URINE CLEAR (CLEAR)
[2020-02-12 16:04] LABS: BACTERIA,URINE None Seen /HPF (None Seen); RBC,URINE None Seen /HPF (0-5); SQUAMOUS EPITHELIAL CELL,UR RARE Squamous (<= Few)
== END 2020-02-12 23:59 | disposition home or self-care (01) ==
LOC: LAB.R 13:29
PROVIDERS: ATTEND Emergency Medicine
DX: I10 Essential (primary) hypertension (principal); T42.75XA Adverse effect of unspecified antiepileptic and sedative-hypnotic drugs, initial encounter
CPT/HCPCS: 81001; 87086

== ENCOUNTER 2020-02-23 15:40 | Outpatient (CLI) | payer OTHER | END 2020-02-23 15:41 | disposition home or self-care (01) | LOC: LAB.S 15:40 | PROVIDERS: ATTEND Psychiatry & Neurology Neurology | DX: R56.9 Unspecified convulsions (principal) | CPT/HCPCS: 36415; 80299 ==

== ENCOUNTER 2022-01-24 11:12 | Outpatient (CLI) | payer OTHER ==
--- NOTE | 2022-01-24 15:01 | XRAY Report ---
PROCEDURE: Knee 3 View RT INDICATIONS: PAIN OF RIGHT KNEE JOINT TECHNIQUE: 3 views of the right knee(s) were acquired. COMPARISON: X-ray right knee, 08/28/2017. MRI right knee, 08/30/2017. FINDINGS: Bones: No fractures or dislocations. No suspicious bony lesions. Mild degenerative joint disease. Soft tissues: Small joint effusion. No suspicious soft tissue calcifications. IMPRESSION: 1. Mild degenerative joint disease. 2. Small knee joint effusion. Reviewed by: Daphne Barclay MD on 01/24/2022 2:59 PM PDT Approved by: Daphne Barclay MD on 01/24/2022 2:59 PM PDT Station ID: [id number]
== END 2022-01-24 11:13 | disposition home or self-care (01) ==
LOC: DI.S 11:12
PROVIDERS: ATTEND Nurse Practitioner Family
DX: M17.11 Unilateral primary osteoarthritis, right knee (principal); M25.461 Effusion, right knee

== ENCOUNTER 2022-06-11 17:20 | Outpatient (CLI) | payer OTHER, MEDICARE | END 2022-06-11 17:21 | disposition home or self-care (01) | LOC: LAB 17:20 | PROVIDERS: ATTEND Psychiatry & Neurology Neurology | DX: R56.9 Unspecified convulsions (principal) | CPT/HCPCS: 80203 ==

== ENCOUNTER 2023-12-03 07:30 | Day surgery (SDC) | payer MEDICARE ==
[~2023-12-03 07:30] MED LIST changes: -BUPIVACAINE 0.5% PF 10 ML VIAL ONE; -DEXAMETHASONE 4 MG/ML VIAL IVP ONE; -HYDROmorphone 1 MG/ML SYRINGE IM ONE; -KETOROLAC 30 MG/ML VIAL IVP ONE; -MIDAZOLAM 2 MG/2 ML VIAL IVP ONE; -ONDANSETRON 4 MG/2 ML VIAL IVP ONE; -PROPOFOL 1000 MG/100 ML IV ONE; +PROPOFOL 500 MG/50 ML 500 MG/50 ML VIAL ONE; -ROCURONIUM 50 MG/5 ML VIAL IVP ONE; -ceFAZolin 3 GM in SODIUM CHLORIDE 0.9% 100ML 100 ML IV SCH; -fentaNYL 100 MCG/2 ML VIAL IVP ONE
[2023-12-03] MEDS: LACTATED RINGERS 1,000 ML IV ONE ×2 (07:34→09:01)
--- NOTE | 2023-12-03 08:12 | ANESTHESIA ---
Pre-Anesthesia VS, & Labs - Diagnosis Screening - Procedure Colonoscopy Vital Signs: Temp Pulse Resp BP Pulse Ox O2 Flow Rate 36 C L 71 18 99 12/03/23 07:41 12/03/23 07:41 12/03/23 07:41 12/03/23 07:41 Height: 5 ft 7 in Weight (kg): 84.5 kg Body Mass Index: 29.1 BMI Classification: Overweight Home Medications and Allergies Home Medications: Ambulatory Orders Zonisamide 250 mg PO BID 12/03/23 Losartan Potassium [Cozaar] 100 mg PO DAILY 07/10/13 hydroCHLOROthiazide [Hydrochlorothiazide] 12.5 mg ORAL DAILY 12/11/16 Zonisamide 250 mg PO BID 12/03/23 Allergies/Adverse Reactions: Allergies Allergy/AdvReac Type Severity Reaction Status Date / Time Sulfa (Sulfonamide Allergy Unknown Verified 10/20/19 20:42 Antibiotics) codeine AdvReac Unknown Emesis Verified 10/20/19 20:42 lisinopril AdvReac Unknown Rash Verified 10/20/19 20:42 nifedipine AdvReac Unknown Anaphylaxis Verified 10/20/19 20:42 simvastatin [From Zocor] AdvReac Unknown Rash Verified 10/20/19 20:42 melatonin AdvReac nightmares Verified 10/20/19 20:42 Anes History & Medical History - Medical History Cardiovascular: reports: Hypertension Pulmonary: reports: None Gastrointestinal: reports: GERD Urinary: reports: Benign prostate hypertrophy, Other Neuro: reports: None Musculoskeletal: reports: None Endocrine/Autoimmune: reports: None Blood Disorders: reports: Anemia Skin: reports: None Smoking Status: Former smoker (quit 20 years ago) - Surgical History General: reports: Colonoscopy, Other Urologic: reports: Prostatic surgery Orthopedic: reports: Other Dermatologic: reports: Skin grafts Exam General: Alert, Oriented x3, Cooperative Dental: WNL Mallampati classification: I Thyromental Distance: greater than 6 cm Plan Anesthesia Type: General Consent for Procedure(s) Verified and Reviewed: Yes Code Status: Attempt Resuscitation ASA classification: 2-Mild systemic disease Is this case an emergency?: No
--- NOTE | 2023-12-03 08:30 | HISTORY & PHYSICAL EXAMINATION ---
PMH/PSH - Past Medical History Cardiovascular: positive: Hypertension Respiratory: positive: None Neuro: positive: None Endocrine/Autoimmune: positive: None GI: positive: GERD : positive: Benign prostate hypertrophy, Other HEENT: positive: Chronic vision loss Psych: positive: Anxiety Musculoskeletal: positive: None Derm: positive: None MRSA Hx?: No - Past Surgical History General: positive: Colonoscopy, Other Ortho: positive: Other Derm: positive: Skin grafts Social & Family Hx - Social History Does the pt smoke?: No Smoking Status: Former smoker (quit 20 years ago) Does the pt drink ETOH?: No Does the pt have substance abuse?: No Substance Use and Type: CBD oil / Products - POLST Patient has POLST: No Meds/Allgy - Home Medications Home Medications: Ambulatory Orders Medication Instructions Recorded Confirmed Losartan Potassium [Cozaar] 100 mg PO DAILY 07/10/13 12/05/18 hydroCHLOROthiazide 12.5 mg ORAL DAILY 12/11/16 12/03/23 [Hydrochlorothiazide] Zonisamide 250 mg PO BID 12/03/23 12/03/23 - Allergies Allergies/Adverse Reactions: Allergies Allergy/AdvReac Type Severity Reaction Status Date / Time Sulfa (Sulfonamide Allergy Unknown Verified 10/20/19 20:42 Antibiotics) codeine AdvReac Unknown Emesis Verified 10/20/19 20:42 lisinopril AdvReac Unknown Rash Verified 10/20/19 20:42 nifedipine AdvReac Unknown Anaphylaxis Verified 10/20/19 20:42 simvastatin [From Zocor] AdvReac Unknown Rash Verified 10/20/19 20:42 melatonin AdvReac nightmares Verified 10/20/19 20:42 Exam - Vital Signs Vital Signs: Vital Signs x48h Temp Pulse Resp Pulse Ox 12/03/23 07:41 96.8 F L 71 18 99 Impression/Plan - Problem List Problem List: Pre-op H&P I am asked to see Eleazar for a screening colonoscopy examination. GI symptoms: Family history of colon cancer/polyps: GM Colon ca Personal history of colon polyps: Yes Last colonoscopy examination: 4 years ago Anticoagulant use: No The Past Family, Social and Personal History has been reviewed with the patient. ROS Denies fevers, chills, night sweats, shortness of breath, chest pain, change in the color of skin or urine, diarrhea, constipation, hematemesis, hematochezia, headache, visual changes, muscle aches. PE VSS, Afeb HEENT: Pupils equal, round and reactive to light, sclera anicteric, normal hearing, oral mucous membranes moist and without lesions NECK: Supple without lymphadenopathy, thyromegaly or carotid bruits LUNGS: Clear to auscultation without wheezing HEART: NSR without murmurs CHEST: Equal and symmetric expansion, no rib pain ABD: Soft, nontender, no hepatosplenomegaly, no hernias GROIN: No hernias or lymphadenopathy EXTREMITIES: Normal neuro and muscular exam SKIN: Anicteric Radiologic Studies N/A Assessment: Request for a screening colonoscopy examination. Plan: Screening colonoscopy under sedation through the Day Surgery admission protocol at [facility]. Consent: Eleazar has been counseled for the procedure, it's indications, risks, benefits and expected outcome as well as alternative therapies. We specifically discussed risks associated with anesthesia and insertion of the endoscope into the large intestine which includes bleeding and injury to the colon which may require surgical intervention. Eleazar understands, agrees, and consents to the proposed operative strategy and requests that we proceed with the procedure as outlined in our discussion. Mckinley Coulter MD, FACS General Surgery Service
[2023-12-03] MEDS ORDERED: GLYCOPYRROLATE 1 MG/5 ML VIAL ONE (08:44)
[2023-12-03] MEDS ORDERED: PROPOFOL 200 MG/20 ML VIAL IVP ONE (08:56)
[2023-12-03 09:26] VITALS: BP 133/61; O2SAT 99
--- NOTE | 2023-12-03 15:37 | ANESTHESIA POST OP EVALUATION ---
Anesthesia Post Eval - Post Anesthesia Eval Vitals: Last Vital Signs Temp 36.0 C L 12/03/23 09:21 Pulse 50 L 12/03/23 09:21 Resp 12 12/03/23 09:21 BP 133/61 H 12/03/23 09:21 Pulse Ox 99 12/03/23 09:21 O2 Flow Rate CV Function Including HR & BP: Stable Pain Control: Satisfactory Nausea & Vomiting: Negative Mental Status: Baseline Respiratory Status: Airway Patent Hydration Status: Satisfactory Anesthesia Complications: None
== END 2023-12-03 07:31 | disposition home or self-care (01) ==
LOC: SDS 07:30
PROVIDERS: ATTEND Surgery
DX: Z12.11 Encounter for screening for malignant neoplasm of colon (principal); Z86.010 Personal history of colon polyps; Z80.0 Family history of malignant neoplasm of digestive organs; Z87.891 Personal history of nicotine dependence
CPT/HCPCS: G0105; J7120